=== PATIENT | male | born 1965 | race Caucasian/White ===

== ENCOUNTER 2017-12-12 13:31 | Emergency (ER) | payer BC, OTHER ==
[2017-12-12] MEDS ORDERED: FAMOTIDINE 20 MG/2 ML VIAL IV ONE (14:22)
[2017-12-12 14:30] LABS: Absolute Lymphocytes (CBC) 1.2 K/uL (0.7-4.9); Absolute Monocytes 0.7 K/uL (0.1-1.3); Absolute Neutrophil 4.6 K/uL (1.8-8.0); Basophils % 0.5 % (0-1.3); Eosinophils % 2.3 % (0-4.4); Hematocrit 52.9 % (39.6-49.0); Lymphocytes % 18.1 % (15.3-44.8); MCH 32.2 pg (27.0-35.0); MCV 94.8 fL (80-100); MPV 7.7 fL (7.6-11.3); Monocytes % 10.4 % (3.3-12.3); RBC Red Blood Cell Count 5.59 M/uL (4.33-5.43)
[2017-12-12 14:43] LABS: Potassium 3.7 mEq/L (3.6-5.0)
[2017-12-12 14:49] LABS: Albumin 4.3 g/dL (3.2-5.5); Bilirubin Direct 0.2 mg/dL (0-0.2); Bilirubin Total 0.8 mg/dL (0.3-1.2); Protein, Total 7.8 g/dL (6.0-8.3)
[2017-12-12 16:01] LABS: Urine Blood NEGATIVE (NEG); Urine Glucose NEGATIVE (NEG); Urine Protein NEGATIVE (NEG); Urine pH 5.5 (5.0-7.0)
--- NOTE | 2017-12-12 16:15 | RAD REPORT ---
EXAM DESCRIPTION: CT - Abdomen Pelvis W Contrast - 12/12/2017 3:58 pm CLINICAL HISTORY: Abdominal pain, diarrhea COMPARISON: None. TECHNIQUE: Biphasic, helical CT imaging of the abdomen and pelvis was performed following 100 ml non -ionic IV contrast. Oral contrast was given. All CT scans are performed using dose optimization technique as appropriate and may include automated exposure control or mA/KV adjustment according to patient size. FINDINGS: A 4 millimeter noncalcified nodule is present in the lower right lung field. At this size, no specific recommendation for follow-up in a low risk patient. High risk patient can be re-evaluate d in 12 months. Mild diffuse fatty infiltration of the liver noted. No focal liver or spleen finding. No pancreatic o r peripancreatic abnormality. Gallbladder and biliary tree show no suspicious findings. Symmetric renal function is seen with no hydronephrosis or suspicious renal mass. No pyelonephritis o r acute process. Contracted urinary bladder shows no suspicious finding. Prostate gland and semina l vesicles show no suspicious findings. No gastric dilatation or gastric wall thickening. No dilated small bowel. Colon shows no acute findin g. No appendicitis. No acute GI process seen to explain blood in the stool. No free air, free fluid or inflammatory stranding. No hernia, mass or bulky lymphadenopathy. No adrenal abnormality. No suspicious bony findings. IMPRESSION: Contrast CT abdomen and pelvis imaging shows no acute finding. No abnormality to explain GI bleed. Mild diffuse fatty infiltration of the liver.
--- NOTE | 2017-12-12 16:42 | EDPHYS ---
Physician Documentation [facility] Name: Philippe Farooq Age: 52 yrs Sex: Male : 1965 Arrival Date: 12/12/2017 Time: 13:36 Bed 26 Private MD: ED Physician Anderson Sofia HPI: 12/12 16:29 This 52 yrs old Male presents to ER via Ambulatory with complaints of pm1 Diarrhea. 16:29 The patient presents to the emergency department with diarrhea, abdominal pain, of the pm1 left lower quadrant, described as crampy, and does not radiate. Onset: The symptoms/episode began/occurred 3 day(s) ago. Possible causes: unknown. The symptoms are aggravated by nothing. The symptoms are alleviated by nothing. Associated signs and symptoms: Pertinent positives: diarrhea, Pertinent negatives: fever, nausea, vomiting. Severity of symptoms: in the emergency department the symptoms are unchanged. The patient has not recently seen a physician. Patient with onset of abdominal cramping on Saturday, then onset of diarrhea. Patient took some Pepto Bismol on Saturday and is reporting black diarrhea. Historical: - Allergies: 13:41 PENICILLINS; iw - Home Meds: 13:41 None [Active]; iw - PMHx: 13:41 None; iw - PSHx: 13:41 back; iw - Immunization history:: Adult Immunizations up to date. - Social history:: Smoking status: Patient uses tobacco products, chewing tobacco. ROS: 16:29 Constitutional: Negative for fever, chills, and weight loss, Eyes: Negative for injury, pm1 pain, redness, and discharge, ENT: Negative for injury, pain, and discharge, Neck: Negative for injury, pain, and swelling, Cardiovascular: Negative for chest pain, palpitations, and edema, Respiratory: Negative for shortness of breath, cough, wheezing, and pleuritic chest pain. 16:29 Back: Negative for injury and pain, : Negative for injury, bleeding, discharge, and swelling, MS/Extremity: Negative for injury and deformity, Skin: Negative for injury, rash, and discoloration, Neuro: Negative for headache, weakness, numbness, tingling, and seizure. 16:29 Abdomen/GI: Positive for abdominal pain, of the left lower quadrant, Black stool, Negative for vomiting. Exam: 15:00 Constitutional: This is a well developed, well nourished patient who is awake, alert, pm1 and in no acute distress. Head/Face: Normocephalic, atraumatic. Eyes: Pupils equal round and reactive to light, extra-ocular motions intact. Lids and lashes normal. Conjunctiva and sclera are non-icteric and not injected. Cornea within normal limits. Periorbital areas with no swelling, redness, or edema. ENT: Nares patent. No nasal discharge, no septal abnormalities noted. Tympanic membranes are normal and external auditory canals are clear. Oropharynx with no redness, swelling, or masses, exudates, or evidence of obstruction, uvula midline. Mucous membranes moist. Neck: Trachea midline, no thyromegaly or masses palpated, and no cervical lymphadenopathy. Supple, full range of motion without nuchal rigidity, or vertebral point tenderness. No Meningismus. Chest/axilla: Normal chest wall appearance and motion. Nontender with no deformity. No lesions are appreciated. Cardiovascular: Regular rate and rhythm with a normal S1 and S2. No gallops, murmurs, or rubs. Normal PMI, no JVD. No pulse deficits. Respiratory: Lungs have equal breath sounds bilaterally, clear to auscultation and percussion. No rales, rhonchi or wheezes noted. No increased work of breathing, no retractions or nasal flaring. 15:00 Back: No spinal tenderness. No costovertebral tenderness. Full range of motion. Skin: Warm, dry with normal turgor. Normal color with no rashes, no lesions, and no evidence of cellulitis. MS/ Extremity: Pulses equal, no cyanosis. Neurovascular intact. Full, normal range of motion. 15:00 Abdomen/GI: Inspection: abdomen appears normal, Bowel sounds: normal, Palpation: soft, nontender, mass, is not appreciated, rebound tenderness, is not appreciated. 15:00 Neuro: Orientation: is normal, Motor: is normal, moves all fours, Gait: is steady, at a normal pace, without difficulty. 15:11 Abdomen/GI: Rectal exam: rectal tone normal, Stool: guaiac negative, mass, is not pm1 appreciated, tenderness, is not appreciated, Nadine SERRANO. Vital Signs: 13:41 BP 133 / 99; Pulse 88; Resp 16; Temp 97.9; Pulse Ox 99% on R/A; Weight 99.79 kg; Height iw 5 ft. 11 in. (180.34 cm); 13:59 BP 145 / 110; Pulse 80; Resp 16; Pulse Ox 98% ; tl3 15:04 BP 126 / 83; Pulse 82; Resp 18; Pulse Ox 98% on R/A; tl3 17:28 BP 113 / 75; Pulse 65; Resp 18; Pulse Ox 100% on R/A; tl3 17:52 Pulse 71; Resp 16; Pulse Ox 98% ; tl3 13:41 Body Mass Index 30.68 (99.79 kg, 180.34 cm) iw MDM: 13:43 Patient medically screened. pm1 16:28 Data reviewed: vital signs. Data interpreted: Pulse oximetry: on room air is 98 %. pm1 Interpretation: normal. Counseling: I had a detailed discussion with the patient and/or guardian regarding: the historical points, exam findings, and any diagnostic results supporting the discharge/admit diagnosis, lab results, radiology results, the need for outpatient follow up, to return to the emergency department if symptoms worsen or persist or if there are any questions or concerns that arise at home. 12/12 14:02 Order name: Basic Metabolic Panel; Complete Time: 14:59 pm1 12/12 14:02 Order name: CBC with Diff; Complete Time: 14:59 pm1 12/12 14:02 Order name: Hepatic Function; Complete Time: 14:59 pm1 12/12 14:02 Order name: Lipase; Complete Time: 14:59 pm1 12/12 14:02 Order name: Type And Screen; Complete Time: 15:53 pm1 12/12 14:15 Order name: Urine Dipstick--Ancillary (enter results); Complete Time: 16:20 bd 12/12 14:02 Order name: IV Saline Lock; Complete Time: 14:21 pm12/12 14:02 Order name: Labs collected and sent; Complete Time: 14:21 pm12/12 14:02 Order name: Urine Dipstick-Ancillary (obtain specimen); Complete Time: 14:21 pm1 12/12 14:02 Order name: CT Abd/Pelvis - W/Contrast; Complete Time: 16:20 pm1 12/12 15:10 Order name: Occult Blood--Ancillary bd 12/12 16:09 Order name: ABO/RH no charge; Complete Time: 16:20 EDMS Administered Medications: 16:57 Drug: NS 0.9% 1000 ml Route: IV; Rate: 1000 ml; Site: right antecubital; Delivery: tl3 Primary tubing; 18:21 Follow up: IV Status: Completed infusion; IV Intake: 1000ml tl3 17:20 Drug: TORadol 30 mg Route: IVP; Site: right antecubital; tl3 17:52 Follow up: Response: No adverse reaction; Pain is decreased tl3 Point of Care Testing: Guaiac: 15:04 Stool Guaiac: Negative; Stool Hemoccult Control: Pass; tl3 Disposition: 18:39 Co-signature as Attending Physician, Anderson Sofia MD. rn Disposition: 12/12/17 16:42 Discharged to Home. Impression: Diarrhea, unspecified. - Condition is Stable. - Discharge Instructions: Food Choices to Help Relieve Diarrhea, Adult, Diarrhea, Viral Gastroenteritis. - Prescriptions for Zofran 4 mg Oral Tablet - take 1 tablet by ORAL route every 8 hours As needed; 20 tablet. - Medication Reconciliation Form, Thank You Letter, Antibiotic Education form. - Follow up: Emergency Department; When: As needed; Reason: Worsening of condition. Follow up: Private Physician; When: 2 - 3 days; Reason: Recheck today's complaints, Continuance of care, Re-evaluation by your physician. - Problem is new. - Symptoms have improved. Signatures: Dispatcher [employer] EDMS Kell Nettles RN RN iw Nieto, Roman, MD MD rn Marinas, Patrick, CHAINSTITCH ELASTIC ATTACHER CHAINSTITCH ELASTIC ATTACHER pm1 Nadine Robb RN RN tl3 Corrections: (The following items were deleted from the chart) 18:22 16:42 12/12/2017 16:42 Discharged to Home. Impression: Diarrhea, unspecified. Condition tl3 is Stable. Forms are Medication Reconciliation Form, Thank You Letter, Antibiotic Education, Prescription Opioid Use. Follow up: Emergency Department; When: As needed; Reason: Worsening of condition. Follow up: Private Physician; When: 2 - 3 days; Reason: Recheck today's complaints, Continuance of care, Re-evaluation by your physician. Problem is new. Symptoms have improved. pm1
--- NOTE | 2017-12-12 16:42 | ER ---
Nurse's Notes [facility] Name: Philippe Farooq Age: 52 yrs Sex: Male : 1965 Arrival Date: 12/12/2017 Time: 13:36 Bed 26 Private MD: Diagnosis: Diarrhea, unspecified Presentation: 12/12 13:39 Presenting complaint: Patient states: Black diarrhea for 2 days. Patient reports taking iw pepto when stomach upset began. Transition of care: patient was not received from another setting of care. Onset of symptoms was December 10, 2017. Care prior to arrival: None. 13:39 Method Of Arrival: Ambulatory iw 13:39 Acuity: LAURA 3 iw 18:22 Initial Sepsis Screen: Does the patient meet any 2 criteria? No. Patient's initial tl3 sepsis screen is negative. Does the patient have a suspected source of infection? No. Patient's initial sepsis screen is negative. Triage Assessment: 13:41 General: Appears in no apparent distress. comfortable, Behavior is calm, cooperative, iw appropriate for age. Pain: Complains of pain in right lower quadrant and left lower quadrant. Neuro: Level of Consciousness is awake, alert, obeys commands, Oriented to person, place, time, situation, Appropriate for age. Respiratory: Airway is patent Respiratory effort is even, unlabored, Respiratory pattern is regular, symmetrical. GI: Reports lower abdominal pain, upper abdominal pain, diarrhea, nausea. Derm: Skin is intact, is healthy with good turgor, Skin is pink, warm \T\ dry. normal. Historical: - Allergies: 13:41 PENICILLINS; iw - Home Meds: 13:41 None [Active]; iw - PMHx: 13:41 None; iw - PSHx: 13:41 back; iw - Immunization history:: Adult Immunizations up to date. - Social history:: Smoking status: Patient uses tobacco products, chewing tobacco. Screenin:59 Abuse screen: Denies threats or abuse. Nutritional screening: No deficits noted. tl3 Tuberculosis screening: No symptoms or risk factors identified. Fall Risk None identified. Assessment: 13:59 General: Appears uncomfortable, well groomed, well developed, well nourished, Behavior tl3 is calm, cooperative, appropriate for age. Pain: Complains of pain in abdomen and left lower quadrant and right lower quadrant. Neuro: Level of Consciousness is awake, alert, obeys commands, Oriented to person, place, time, situation, Appropriate for age. Cardiovascular: Heart tones S1 S2 present Capillary refill < 3 seconds in bilateral fingers. Respiratory: Airway is patent Trachea midline Respiratory effort is even, unlabored, Respiratory pattern is regular, symmetrical, Breath sounds are clear bilaterally. GI: Abdomen is round Bowel sounds present X 4 quads. Reports bloody stool. GI: Reports since Saturday. : No signs and/or symptoms were reported regarding the genitourinary system. EENT: No signs and/or symptoms were reported regarding the EENT system. Derm: No signs and/or symptoms reported regarding the dermatologic system. Musculoskeletal: No signs and/or symptoms reported regarding the musculoskeletal system. 15:04 Reassessment: Patient appears in no apparent distress at this time. No changes from tl3 previously documented assessment. Patient and/or family updated on plan of care and expected duration. Pain level reassessed. Patient is alert, oriented x 3, equal unlabored respirations, skin warm/dry/pink. 15:27 Reassessment: Patient appears in no apparent distress at this time. No changes from tl3 previously documented assessment. Patient and/or family updated on plan of care and expected duration. Pain level reassessed. Patient is alert, oriented x 3, equal unlabored respirations, skin warm/dry/pink. pt unable to provide stool sample. 17:28 Reassessment: awaiting fluids to finish infusing before discharging. tl3 17:52 Reassessment: Patient appears in no apparent distress at this time. No changes from tl3 previously documented assessment. Patient and/or family updated on plan of care and expected duration. Pain level reassessed. Patient is alert, oriented x 3, equal unlabored respirations, skin warm/dry/pink. pt resting, about 300ml left to go on bolus. Vital Signs: 13:41 BP 133 / 99; Pulse 88; Resp 16; Temp 97.9; Pulse Ox 99% on R/A; Weight 99.79 kg; Height iw 5 ft. 11 in. (180.34 cm); 13:59 BP 145 / 110; Pulse 80; Resp 16; Pulse Ox 98% ; tl3 15:04 BP 126 / 83; Pulse 82; Resp 18; Pulse Ox 98% on R/A; tl3 17:28 BP 113 / 75; Pulse 65; Resp 18; Pulse Ox 100% on R/A; tl3 17:52 Pulse 71; Resp 16; Pulse Ox 98% ; tl3 13:41 Body Mass Index 30.68 (99.79 kg, 180.34 cm) iw ED Course: 13:36 Patient arrived in ED. rg4 13:41 Triage completed. iw 13:41 Arm band placed on left wrist. Patient placed in an exam room, on a stretcher. iw 13:42 Jude Bailey NP is PHCP. pm1 13:42 Anderson Sofia MD is Attending Physician. pm1 13:45 Nadine Robb, ZACH is Primary Nurse. tl3 13:59 No apparent distress. Resting quietly. Awaiting lab results. tl3 13:59 Patient has correct armband on for positive identification. Bed in low position. Call tl3 light in reach. Side rails up X 1. Pulse ox on. NIBP on. Door closed. 13:59 No provider procedures requiring assistance completed. Inserted saline lock: 20 gauge tl3 in right antecubital area, using aseptic technique. Blood collected. 15:[address] via wheelchair. vm2 15:58 CT Abd/Pelvis - W/Contrast In Process Unspecified. EDMS 15:58 CT completed. Patient tolerated procedure well. Patient moved back from CT. kw1 18:20 IV discontinued, intact, bleeding controlled, No redness/swelling at site. Pressure tl3 dressing applied. Administered Medications: 16:57 Drug: NS 0.9% 1000 ml Route: IV; Rate: 1000 ml; Site: right antecubital; Delivery: tl3 Primary tubing; 18:21 Follow up: IV Status: Completed infusion; IV Intake: 1000ml tl3 17:20 Drug: TORadol 30 mg Route: IVP; Site: right antecubital; tl3 17:52 Follow up: Response: No adverse reaction; Pain is decreased tl3 Point of Care Testing: Guaiac: 15:04 Stool Guaiac: Negative; Stool Hemoccult Control: Pass; tl3 Intake: 18:21 IV: 1000ml; Total: 1000ml. tl3 Outcome: 16:42 Discharge ordered by . pm1 18:20 Discharged to home ambulatory. tl3 18:20 Condition: stable 18:20 Discharge instructions given to patient, Instructed on discharge instructions, follow up and referral plans. medication usage, Demonstrated understanding of instructions, follow-up care, medications, Prescriptions given X 1, stressed good handwashing and fluid intake 18:22 Patient left the ED. tl3 Signatures: Dispatcher [employer] EDKell Calhoun, RN RN Jude Jackson, [employer] SYSTEMS TECHNICIAN pm1 Peg Lopez rg4 Jeaneth Rolle 2 Laura Sparrow 1 Nadnie Robb RN RN tl3 Corrections: (The following items were deleted from the chart) 15:32 15:27 BP 120 / 75; Pulse 78bpm; Resp 16bpm; Pulse Ox 100% RA; tl3 tl3
[2017-12-12] MEDS ORDERED: NA CHLORIDE 0.9% 1,000 ML ONE (16:59)
[2017-12-12] MEDS ORDERED: KETOROLAC 30 MG/ML INJ ONE (17:17)
== END 2017-12-12 18:22 | disposition home or self-care (01) ==
LOC: ER 13:31
DX: R19.7 Diarrhea, unspecified (principal); Z72.0 Tobacco use; Z88.0 Allergy status to penicillin
CPT/HCPCS: 36415; 74177; 80048; 80076; 81003; 82272; 83690; 85025; 86850; 86900; 86901; 96361; 96374; 99284; J7030; Q9967

== ENCOUNTER 2022-01-31 15:56 | Emergency (ER) | payer OTHER ==
[2022-01-31 16:28] LABS: Absolute Lymphocytes (CBC) 0.9 K/uL (0.7-4.9); Hematocrit 47.5 % (39.6-49.0); Lymphocytes % 9.8 % (15.3-44.8); MCV 94.4 fL (80-100); MPV 7.3 fL (7.6-11.3); RBC Red Blood Cell Count 5.03 M/uL (4.33-5.43)
--- NOTE | 2022-01-31 16:36 | RAD REPORT ---
EXAM DESCRIPTION: CT - Ct Stroke Brain Wo Cont - 01/31/2022 4:28 pm CLINICAL HISTORY: Headache Headache, drowsiness, CVA symptomology COMPARISON: No comparisons TECHNIQUE: All CT scans are performed using dose optimization technique as appropriate and may inclu de automated exposure control or mA/KV adjustment according to patient size. FINDINGS: No intracranial hemorrhage, hydrocephalus or extra-axial fluid collection.No areas of brai n edema or evidence of midline shift. The paranasal sinuses and mastoids are clear. The calvarium is intact. IMPRESSION: No acute intracranial abnormality. The findings were discussed with Santos France in the ER on 01/31/2022 at 4:07 p.m. by telephone.
--- NOTE | 2022-01-31 16:40 | RAD REPORT ---
EXAM DESCRIPTION: RAD - Chest Single View - 01/31/2022 4:27 pm CLINICAL HISTORY: MALAISE Chest pain. COMPARISON: Ct Stroke Brain Wo Cont dated 01/31/2022 FINDINGS: Portable technique limits examination quality. Mild interstitial pulmonary edema. The heart is mildly prominent. No displaced fractures. IMPRESSION: Mild CHF.
[2022-01-31 16:42] LABS: Potassium 4.2 mmol/L (3.5-5.1); Protime INR 1.03
[2022-01-31] MEDS ORDERED: MORPHINE 4 MG/ML SYR ONE (16:53)
[2022-01-31] MEDS ORDERED: NA CHLORIDE 0.9% 1,000 ML ONE (16:53)
[2022-01-31] MEDS ORDERED: ONDANSETRON 4 MG/2 ML VIAL ONE (16:53)
[2022-01-31] MEDS ORDERED: MEPERIDINE HCL 25 MG/ML SYR ONE (16:58)
[2022-01-31] MEDS ORDERED: HYDROMORPHONE HCL 1 MG/ML INJ ONE (18:31)
[2022-01-31 20:17] LABS: CSF Glucose 52 mg/dL (40-70)
[2022-01-31 21:06] LABS: Appearance CLEAR (CLEAR); Body Fluid Source CSF; Body Fluid WBC 1 /mm^3; Color of fluid Colorless (COLORLESS)
[2022-01-31 21:07] LABS: Appearance CLEAR (CLEAR); Body Fluid Source CSF; Body Fluid WBC 0 /mm^3; Color of fluid Colorless (COLORLESS); Fluid Total Volume 12.5 ml
[2022-01-31] MEDS ORDERED: METOCLOPRAMIDE 10 MG/2mL INJ ONE (21:27)
[2022-01-31] MEDS ORDERED: NA CHLORIDE 0.9% 500 ML ONE (21:28)
[2022-01-31] MEDS ORDERED: dexAMETHasone 10 MG/ML VIAL ONE (21:28)
[2022-01-31] MEDS ORDERED: KETOROLAC 30 MG/ML INJ ONE (21:28)
--- NOTE | 2022-01-31 22:14 | ER ---
Nurse's Notes [facility] Name: Philippe Farooq Age: 56 yrs Sex: Male : 1965 Arrival Date: 01/31/2022 Time: 15:58 Bed 4 Private MD: Diagnosis: Headache Presentation: 01/31 15:58 Chief complaint: EMS states: Sudden onset of headache, worse ever. Onset at 1200 today. ss Coronavirus screen: Client denies travel out of the [place] in the last 14 days. Ebola Screen: Patient denies exposure to infectious person. Patient denies travel to an Ebola-affected area in the 21 days before illness onset. Initial Sepsis Screen: Does the patient meet any 2 criteria? No. Patient's initial sepsis screen is negative. Does the patient have a suspected source of infection? No. Patient's initial sepsis screen is negative. Risk Assessment: Do you want to hurt yourself or someone else? Patient reports no desire to harm self or others. Onset of symptoms was January 31, 2022 at 12:00. 15:58 Method Of Arrival: EMS: [facility] ss 15:58 Acuity: LAURA 2 ss 16:00 No acute neurological deficit is noted. The patients blood glucose was checked before jd3 arriving to the hospital and was found to be hypoglycemic. The patient's blood glucose has been rechecked and it is now normal. The charge nurse has been notified. The patient has been moved to a treatment area. Triage Assessment: 16:00 The onset of the patients symptoms was January 31, 2022 at 12:00. jd3 16:00 Neuro: Polanco Agitation-Sedation Scale (RASS): 0 - Alert and Calm Level of jd3 Consciousness is awake, alert, obeys commands, Oriented to person, place, time, situation, Cancer Registry Coordinator are equal bilaterally Moves all extremities. Full function Speech is normal, Facial symmetry appears normal, Pupils are PERRLA, Tingling in left hand and left arm Reports headache " in the jehovah's witness areas and it wraps around to the back of my head tingling feeling to his left hand and arm. Stroke Activation: Symtpom onset >3 hours and < 6 hours Physician: Stroke Attending; Name: Dr. Carlos; Notified At: 16:00; Arrived At: 16:00 Physician: Chief Stroke Resident; Name: ; Notified At: 16:00; Arrived At: Physician: Stroke Resident; Name: ; Notified At: 16:00; Arrived At: Physician: ED Attending; Name: Dr. Carlos; Notified At: 16:00; Arrived At: 16:00 Physician: ED Resident; Name: ; Notified At: 16:00; Arrived At: Historical: - Allergies: 16:04 PENICILLINS; ss 19:14 Morphine; jd3 - Home Meds: 16:04 Lisinopril Oral [Active]; meloxicam oral [Active]; ss - PMHx: 16:04 Hypertensive disorder; ss - Immunization history:: Adult Immunizations up to date, Client reports receiving the 2nd dose of the Covid vaccine. - Social history:: Smoking status: Patient/guardian denies using tobacco, but has a distant history of tobacco abuse. Screenin:29 Abuse screen: Denies threats or abuse. Nutritional screening: No deficits noted. jd3 Tuberculosis screening: No symptoms or risk factors identified. Fall Risk IV access (20 points). Ambulatory Aid- None/Bed Rest/Nurse Assist (0 pts). Gait- Normal/Bed Rest/Wheelchair (0 pts) Mental Status- Oriented to own ability (0 pts). Total Goyal Fall Scale indicates No Risk (0-24 pts). Assessment: 16:00 Reassessment: pt to CT for code stroke. jd3 16:00 VAN Scoring: Arm Drift: Patients demonstrates NO arm weakness. Patient is VAN Negative. jd3 16:00 General: Appears uncomfortable, Behavior is calm, cooperative, appropriate for age. jd3 Pain: Complains of pain in right jehovah's witness and left jehovah's witness Pain radiates to head Quality of pain is described as sharp, shooting, Pain began suddenly. Neuro: [place] Agitation-Sedation Scale (RASS): 0 - Alert and Calm Level of Consciousness is awake, alert, obeys commands, Oriented to person, place, time, situation. 16:25 Patient has been NPO before screening. The patient is alert, and able to follow jd3 commands. The patient does not exhibit slurred or garbled speech. The patient is not exhibiting difficulty speaking. The patient does not exhibit difficulty understanding words. The patient is able to swallow own secretions with no drooling or need for suction. Patient tolerated one teaspoon of water. No drooling, immediate coughing, gurgling, or clearing of the throat was noted. The patient tolerated 90mL of water. No drooling, immediate coughing, gurgling, or clearing of the throat was noted. The patient passed the bedside swallow screening. Oral medications may be given as ordered. Contact Physician for further diet orders. Provider notified of bedside swallow screening results: Adonay Carlos MD. Cardiovascular: Capillary refill < 3 seconds Patient's skin is warm and dry. Rhythm is regular. Respiratory: Airway is patent Respiratory effort is even, unlabored, Respiratory pattern is regular, symmetrical. GI: No signs and/or symptoms were reported involving the gastrointestinal system. : No signs and/or symptoms were reported regarding the genitourinary system. EENT: No signs and/or symptoms were reported regarding the EENT system. Derm: Skin is intact, Skin is dry, Skin is normal, Skin temperature is warm. Musculoskeletal: Circulation, motion, and sensation intact. Range of motion: intact in all extremities. 16:30 T-PA (Activase) Screening: Contraindications: Patient reports onset of signs and jd3 symptoms of stroke greater than 6 hours ago: No. 18:11 Reassessment: No changes from previously documented assessment. Patient and/or family jd3 updated on plan of care and expected duration. Pain level reassessed. Patient is alert, oriented x 3, equal unlabored respirations, skin warm/dry/pink. 18:18 Reassessment: LP consent signed by patient . aa5 21:32 General: Reports "My head is still killing me. I feel like my head is getting sore from tw5 the headache/". 22:40 Reassessment: Patient states feeling better. Patient states symptoms have improved. tw5 General: Reports. Pain: Pain currently is 5 out of 10 on a pain scale. Vital Signs: 16:18 BP 137 / 87; Pulse 81; Resp 17 S; Pulse Ox 99% on R/A; Weight 88.45 kg (R); Height 6 jd3 ft. 0 in. (182.88 cm) (R); Pain 8/10; 18:11 BP 153 / 91; Pulse 80; Resp 17 S; Pulse Ox 99% on R/A; jd3 21:32 BP 126 / 82; Pulse 89; Resp 18; Pulse Ox 98% on R/A; Pain 8/10; tw5 22:40 BP 123 / 91; Pulse 81; Resp 18; Pulse Ox 96% on R/A; tw5 16:18 Body Mass Index 26.45 (88.45 kg, 182.88 cm) jd3 [place] Coma Score: 22:12 Eye Response: spontaneous(4). Verbal Response: oriented(5). Motor Response: obeys rn commands(6). Total: 15. NIH Stroke Scale Scores: 16:00 NIHSS Score: 0 jd3 17:30 NIHSS Score: 0 jd3 ED Course: 15:58 Patient arrived in ED. ss 16:01 Adonay Carlos MD is Attending Physician. kdr 16:04 Triage completed. ss 16:17 Faisal Vázquez, ZACH is Primary Nurse. jd3 16:19 Arm band placed on. jd3 16:24 Inserted saline lock: 20 gauge in right antecubital area, using aseptic technique. zm Blood collected. 16:25 Basic Metabolic Panel Sent. zm 16:25 CBC with Diff Sent. zm 16:25 Protime (+inr) Sent. zm 16:25 Ptt, Activated Sent. zm 16:26 EKG completed in triage. Results shown to MD. jd3 16:29 CT Stroke Brain w/o Contrast In Process Unspecified. EDMS 16:29 Stroke CXR 1 View In Process Unspecified. EDMS 16:29 Patient has correct armband on for positive identification. Bed in low position. Call [facility] light in reach. Side rails up X 1. Client placed on continuous cardiac and pulse oximetry monitoring. NIBP monitoring applied. monitor technician on. Pulse ox on. NIBP on. 18:55 Assist provider with lumbar puncture: Set up LP tray. Performed by Adonay Carlos MD CSF aa5 is clear. Puncture site dressed with band aid, Procedure was successful. Patient tolerated Pt instructed to remain in supine position x 1 hr post procedure. 19:00 Report given to Twyla SERRANO. jd3 20:55 Attending Physician role handed off by Adonay Carlos MD rn 20:55 Anderson Sofia MD is Attending Physician. rn 21:18 Csf Culture Sent. tw5 21:32 Door closed. tw5 22:13 Nixon Boggs MD is Referral Physician. rn 22:40 IV discontinued, intact, bleeding controlled, No redness/swelling at site. Pressure tw5 dressing applied. Administered Medications: 16:57 Not Given (Physician Discretion): morphine 4 mg IVP once over 4 mins jd3 16:57 Drug: Zofran (Ondansetron) 4 mg Route: IVP; Site: right antecubital; jd3 17:50 Follow up: Response: No adverse reaction jd3 16:57 Drug: NS 0.9% 500 ml Route: IV; Rate: bolus; Site: right antecubital; jd3 18:13 Follow up: Response: No adverse reaction; IV Status: Completed infusion jd3 16:57 Drug: Demerol (meperidine) 25 mg Route: IVP; Site: right antecubital; jd3 17:50 Follow up: Response: No adverse reaction; RASS: Alert and Calm (0) jd3 18:25 Drug: Dilaudid (HYDROmorphone) 1 mg Route: IVP; Site: right antecubital; jd3 19:13 Follow up: Response: No adverse reaction; RASS: Alert and Calm (0) jd3 21:26 Drug: NS 0.9% 500 ml Route: IV; Rate: bolus; Site: right antecubital; tw5 22:45 Follow up: Response: No adverse reaction; IV Status: Completed infusion; IV Intake: tw5 500ml 21:31 Drug: Reglan (metoCLOPramide) 10 mg Route: IVP; Site: right antecubital; tw5 22:46 Follow up: Response: No adverse reaction tw5 21:31 Drug: Decadron - Dexamethasone 10 mg Route: IVP; Site: right antecubital; tw5 22:45 Follow up: Response: No adverse reaction tw5 21:31 Drug: Ketorolac 15 mg Route: IVP; Site: right antecubital; tw5 22:45 Follow up: Response: No adverse reaction tw5 Medication: 16:29 VIS not applicable for this client. jd3 Point of Care Testing: Blood Glucose: 16:20 Blood Glucose: 96 mg/dL; jd3 Ranges: Intake: 22:45 IV: 500ml; Total: 500ml. tw5 Outcome: 22:13 Discharge ordered by MD. serrano 22:40 Discharged to home ambulatory. tw5 22:40 Condition: improved 22:40 Discharge instructions given to patient, Instructed on discharge instructions, Demonstrated understanding of instructions, follow-up care. 22:46 Patient left the ED. tw5 NIH Stroke Scale - NIH Stroke Score Date: 01/31/2022 Time: 16:00 Total Score = 0 1a. Level of Consciousness (LOC) - 0(Alert) 1b. Level of Consciousness (LOC) (Month \\T\\ Age) - 0(Both) 1c. LOC Commands (Open \\T\\ Closes Eyes/Microbiology Laboratory Manager) - 0(Both) 2. Best Gaze (Lateral Gaze Paresis) - 0(Normal) 3. Visual Field Loss - 0(No visual loss) 4. Facial Palsy - 0(Normal) 5a. Left Arm: Motor (10-second hold) - 0(No drift) 5b. Right Arm: Motor (10-second hold) - 0(No drift) 6a. Left Leg: Motor (5-second hold - always test supine) - 0(No drift) 6b. Right Leg: Motor (5-second hold - always test supine) - 0(No drift) 7. Limb Ataxia (finger/nose \\T\\ heel/weber - test with eyes open) - 0(Absent) 8. Sensory Loss (pinprick arms/legs/face) - 0(Normal) 9. Best Language: Aphasia (description/naming/reading) - 0(No aphasia) 10. Dysarthria (speech clarity - read or repeat words) - 0(Normal) 11. Extinction and Inattention (visual/tactile/auditory/spatial/personal) - 0(No abnormality) Initials: jd3 NIH Stroke Scale - NIH Stroke Score Date: 01/31/2022 Time: 17:30 Total Score = 0 1a. Level of Consciousness (LOC) - 0(Alert) 1b. Level of Consciousness (LOC) (Month \\T\\ Age) - 0(Both) 1c. LOC Commands (Open \\T\\ Closes Eyes/Microbiology Laboratory Manager) - 0(Both) 2. Best Gaze (Lateral Gaze Paresis) - 0(Normal) 3. Visual Field Loss - 0(No visual loss) 4. Facial Palsy - 0(Normal) 5a. Left Arm: Motor (10-second hold) - 0(No drift) 5b. Right Arm: Motor (10-second hold) - 0(No drift) 6a. Left Leg: Motor (5-second hold - always test supine) - 0(No drift) 6b. Right Leg: Motor (5-second hold - always test supine) - 0(No drift) 7. Limb Ataxia (finger/nose \\T\\ heel/weber - test with eyes open) - 0(Absent) 8. Sensory Loss (pinprick arms/legs/face) - 0(Normal) 9. Best Language: Aphasia (description/naming/reading) - 0(No aphasia) 10. Dysarthria (speech clarity - read or repeat words) - 0(Normal) 11. Extinction and Inattention (visual/tactile/auditory/spatial/personal) - 0(No abnormality) Initials: jchelsea Signatures: Dispatcher [employer] Adonay Calabrese MD MD kdr Nieto, Roman, MD MD rn Calderon, Toña, ZACH RN aa5 Rebekah Quiros RN RN ss Davies, Jonathon, RN RN jd3 Wood, Tiffany 5 Kiana Cifuentes Corrections: (The following items were deleted from the chart) 16:26 16:23 The onset of the patients symptoms was January 31, 2022 at 12:00 milena abbott
--- NOTE | 2022-01-31 22:14 | EDPHYS ---
Physician Documentation [facility] Name: Philippe Farooq Age: 56 yrs Sex: Male : 1965 Arrival Date: 01/31/2022 Time: 15:58 Bed 4 Private MD: ED Physician Anderson Sofia HPI: 01/31 19:01 This 56 yrs old Male presents to ER via EMS with complaints of Headache, Worst Ever. kdr 19:01 The patient complains of pain to the top of head and forehead. The patient describes kdr the headache as aching, constant, a pressure. Onset: The symptoms/episode began/occurred acutely, suddenly, just prior to arrival. Associated signs and symptoms: Pertinent positives: nausea, Pertinent negatives: fever, neck stiffness, paresthesias, sinus congestion, sinus tenderness, vision changes, weakness, vertigo. Severity of symptoms: At its worst the pain was incapacitating, just prior to arrival, the "worst in my life". Headache History: The patient has had previous headaches and this one is more severe than previous episodes. The symptoms are alleviated by nothing. the symptoms are aggravated by lights, movement. The patient has not experienced similar symptoms in the past. The patient has not recently seen a physician. Historical: - Allergies: 16:04 PENICILLINS; ss 19:14 Morphine; jd3 - Home Meds: 16:04 Lisinopril Oral [Active]; meloxicam oral [Active]; ss - PMHx: 16:04 Hypertensive disorder; ss - Immunization history:: Adult Immunizations up to date, Client reports receiving the 2nd dose of the Covid vaccine. - Social history:: Smoking status: Patient/guardian denies using tobacco, but has a distant history of tobacco abuse. ROS: 19:01 Constitutional: Negative for fever, chills, and weight loss, Eyes: Negative for injury, kdr pain, redness, and discharge, Neck: Negative for injury, pain, and swelling, Cardiovascular: Negative for chest pain, palpitations, and edema, Respiratory: Negative for shortness of breath, cough, wheezing, and pleuritic chest pain, Abdomen/GI: Negative for abdominal pain, nausea, vomiting, diarrhea, and constipation, Back: Negative for injury and pain, : Negative for injury, bleeding, discharge, and swelling, MS/Extremity: Negative for injury and deformity, Skin: Negative for injury, rash, and discoloration, Psych: Negative for depression, anxiety, suicide ideation, homicidal ideation, and hallucinations, Allergy/Immunology: Negative for hives, rash, and allergies, Endocrine: Negative for neck swelling, polydipsia, polyuria, polyphagia, and marked weight changes, Hematologic/Lymphatic: Negative for swollen nodes, abnormal bleeding, and unusual bruising. 19:01 Neuro: Positive for Tingling minor in upper extremities, Negative for altered mental status, gait disturbance, hearing loss, loss of consciousness, numbness, seizure activity, speech changes, syncope, near syncope, tinnitus, tremor, visual changes. Exam: 19:01 Constitutional: This is a well developed, well nourished patient who is awake, alert, kdr and in no acute distress. Head/Face: Normocephalic, atraumatic. Eyes: Pupils equal round and reactive to light, extra-ocular motions intact. Lids and lashes normal. Conjunctiva and sclera are non-icteric and not injected. Cornea within normal limits. Periorbital areas with no swelling, redness, or edema. Neck: Trachea midline, no thyromegaly or masses palpated, and no cervical lymphadenopathy. Supple, full range of motion without nuchal rigidity, or vertebral point tenderness. No Meningismus. 19:01 Neck: ROM/movement: pain, is not appreciated, Meningeal signs: are not present, nuchal rigidity, is not appreciated, No pain with leg raises either. Vital Signs: 16:18 BP 137 / 87; Pulse 81; Resp 17 S; Pulse Ox 99% on R/A; Weight 88.45 kg (R); Height 6 jd3 ft. 0 in. (182.88 cm) (R); Pain 8/10; 18:11 BP 153 / 91; Pulse 80; Resp 17 S; Pulse Ox 99% on R/A; jd3 21:32 BP 126 / 82; Pulse 89; Resp 18; Pulse Ox 98% on R/A; Pain 8/10; tw5 22:40 BP 123 / 91; Pulse 81; Resp 18; Pulse Ox 96% on R/A; tw5 16:18 Body Mass Index 26.45 (88.45 kg, 182.88 cm) jd3 NIH Stroke Scale Scores: 16:00 NIHSS Score: 0 jd3 17:30 NIHSS Score: 0 jd3 [place] Coma Score: 22:12 Eye Response: spontaneous(4). Verbal Response: oriented(5). Motor Response: obeys rn commands(6). Total: 15. Procedures: 19:01 Lumbar Puncture: Patient placed in sitting position. Prepped with Betadine. Collected kdr 12 ml's of clear fluid. Sample sent to lab. Puncture site dressed with band aid, Patient tolerated well. MDM: 19:01 Data reviewed: vital signs, nurses notes, lab test result(s), radiologic studies. kdr 19:12 ED course: Dr. Sofia to disposition. kdr 19:42 Patient medically screened. cp 20:55 ED course: Signed out to me by Dr. Carlos, pending results of LP for new and worst rn headache of his life.. 22:12 Differential diagnosis: cluster headache, intracerebral hemorrhage, meningitis, rn migraine, neoplasm, sinusitis, subarachnoid bleed, tension headache, vasomotor headache. Counseling: I had a detailed discussion with the patient and/or guardian regarding: the historical points, exam findings, and any diagnostic results supporting the discharge/admit diagnosis, lab results, radiology results, the need for outpatient follow up, to return to the emergency department if symptoms worsen or persist or if there are any questions or concerns that arise at home. Response to treatment: the patient's symptoms have mildly improved after treatment, and as a result, I will discharge patient. Special discussion: I discussed with the patient/guardian in detail that at this point there is no indication for admission to the hospital. It is understood, however, that if the symptoms persist or worsen the patient needs to return immediately for re-evaluation. Based on the history and exam findings, there is no indication for further emergent testing or inpatient evaluation. I discussed with the patient/guardian the need to see the neurologist for further evaluation of the symptoms. I discussed with the patient/guardian the need to see the primary care provider for further evaluation of the symptoms. ED course: LP results neg for RBC or meningitis. Stable vitals, feels better, will dc home with neuro and pcp f/u and return precautions. . 01/31 16:02 Order name: Basic Metabolic Panel; Complete Time: 16:55 kdr 01/31 16:02 Order name: CBC with Diff; Complete Time: 16:55 kdr 01/31 16:02 Order name: Protime (+inr); Complete Time: 16:55 kdr 01/31 16:02 Order name: Ptt, Activated; Complete Time: 16:55 kdr 01/31 16:37 Order name: Glucose, Ancillary Testing; Complete Time: 16:55 EDMS 01/31 16:02 Order name: CT Stroke Brain w/o Contrast; Complete Time: 16:55 kdr 01/31 16:02 Order name: Stroke CXR 1 View; Complete Time: 16:55 kdr 01/31 19:17 Order name: Csf Culture em1 01/31 19:17 Order name: Fluid Cell Count,Body; Complete Time: 21:08 em1 01/31 19:17 Order name: Spinal Fluid Profile; Complete Time: 21:13 em1 01/31 16:02 Order name: EKG; Complete Time: 16:03 kdr 01/31 16:02 Order name: Accucheck; Complete Time: 16:26 kdr 01/31 16:02 Order name: Cardiac monitoring; Complete Time: 16:26 kdr 01/31 16:02 Order name: EKG - Nurse/Tech; Complete Time: 16:26 kdr 01/31 16:02 Order name: IV Saline Lock; Complete Time: 16:25 kdr 01/31 16:02 Order name: Labs collected and sent; Complete Time: 16:25 kdr 01/31 16:02 Order name: NPO; Complete Time: 16:40 kdr 01/31 16:02 Order name: O2 Per Protocol; Complete Time: 16:40 kdr 01/31 16:02 Order name: O2 Sat Monitoring; Complete Time: 16:40 kdr 01/31 16:02 Order name: Stroke Swallow Screen; Complete Time: 16:40 kdr 01/31 19:17 Order name: LP Consents; Complete Time: 19:17 em1 01/31 19:17 Order name: LP Setup; Complete Time: 19:17 em1 Administered Medications: 16:57 Not Given (Physician Discretion): morphine 4 mg IVP once over 4 mins jd3 16:57 Drug: Zofran (Ondansetron) 4 mg Route: IVP; Site: right antecubital; jd3 17:50 Follow up: Response: No adverse reaction jd3 16:57 Drug: NS 0.9% 500 ml Route: IV; Rate: bolus; Site: right antecubital; jd3 18:13 Follow up: Response: No adverse reaction; IV Status: Completed infusion jd3 16:57 Drug: Demerol (meperidine) 25 mg Route: IVP; Site: right antecubital; jd3 17:50 Follow up: Response: No adverse reaction; RASS: Alert and Calm (0) jd3 18:25 Drug: Dilaudid (HYDROmorphone) 1 mg Route: IVP; Site: right antecubital; jd3 19:13 Follow up: Response: No adverse reaction; RASS: Alert and Calm (0) jd3 21:26 Drug: NS 0.9% 500 ml Route: IV; Rate: bolus; Site: right antecubital; tw5 22:45 Follow up: Response: No adverse reaction; IV Status: Completed infusion; IV Intake: tw5 500ml 21:31 Drug: Reglan (metoCLOPramide) 10 mg Route: IVP; Site: right antecubital; tw5 22:46 Follow up: Response: No adverse reaction tw5 21:31 Drug: Decadron - Dexamethasone 10 mg Route: IVP; Site: right antecubital; tw5 22:45 Follow up: Response: No adverse reaction tw5 21:31 Drug: Ketorolac 15 mg Route: IVP; Site: right antecubital; tw5 22:45 Follow up: Response: No adverse reaction tw5 Point of Care Testing: Blood Glucose: 16:20 Blood Glucose: 96 mg/dL; jd3 Ranges: Critical Glucose Levels:Adult <50 mg/dl or >400 mg/dl <40 mg/dl or >180 mg/dl Disposition Summary: 01/31/22 22:13 Discharge Ordered Location: Home rn Problem: new rn Symptoms: have improved rn Condition: Stable rn Diagnosis - Headache rn Followup: rn - With: Nixon Boggs MD - When: As needed - Reason: Recheck today's complaints, Re-evaluation by your physician Discharge Instructions: - Discharge Summary Sheet rn - General Headache Without Cause rn Forms: - Medication Reconciliation Form rn - Thank You Letter rn - Antibiotic seed corn manager production - Prescription Opioid Use rn NIH Stroke Scale - NIH Stroke Score Date: 01/31/2022 Time: 16:00 Total Score = 0 1a. Level of Consciousness (LOC) - 0(Alert) 1b. Level of Consciousness (LOC) (Month \\T\\ Age) - 0(Both) 1c. LOC Commands (Open \\T\\ Closes Eyes/Bow Stapler) - 0(Both) 2. Best Gaze (Lateral Gaze Paresis) - 0(Normal) 3. Visual Field Loss - 0(No visual loss) 4. Facial Palsy - 0(Normal) 5a. Left Arm: Motor (10-second hold) - 0(No drift) 5b. Right Arm: Motor (10-second hold) - 0(No drift) 6a. Left Leg: Motor (5-second hold - always test supine) - 0(No drift) 6b. Right Leg: Motor (5-second hold - always test supine) - 0(No drift) 7. Limb Ataxia (finger/nose \\T\\ heel/weber - test with eyes open) - 0(Absent) 8. Sensory Loss (pinprick arms/legs/face) - 0(Normal) 9. Best Language: Aphasia (description/naming/reading) - 0(No aphasia) 10. Dysarthria (speech clarity - read or repeat words) - 0(Normal) 11. Extinction and Inattention (visual/tactile/auditory/spatial/personal) - 0(No abnormality) Initials: jd3 NIH Stroke Scale - NIH Stroke Score Date: 01/31/2022 Time: 17:30 Total Score = 0 1a. Level of Consciousness (LOC) - 0(Alert) 1b. Level of Consciousness (LOC) (Month \\T\\ Age) - 0(Both) 1c. LOC Commands (Open \\T\\ Closes Eyes/Bow Stapler) - 0(Both) 2. Best Gaze (Lateral Gaze Paresis) - 0(Normal) 3. Visual Field Loss - 0(No visual loss) 4. Facial Palsy - 0(Normal) 5a. Left Arm: Motor (10-second hold) - 0(No drift) 5b. Right Arm: Motor (10-second hold) - 0(No drift) 6a. Left Leg: Motor (5-second hold - always test supine) - 0(No drift) 6b. Right Leg: Motor (5-second hold - always test supine) - 0(No drift) 7. Limb Ataxia (finger/nose \\T\\ heel/weber - test with eyes open) - 0(Absent) 8. Sensory Loss (pinprick arms/legs/face) - 0(Normal) 9. Best Language: Aphasia (description/naming/reading) - 0(No aphasia) 10. Dysarthria (speech clarity - read or repeat words) - 0(Normal) 11. Extinction and Inattention (visual/tactile/auditory/spatial/personal) - 0(No abnormality) Initials: jd3 Signatures: Dispatcher [employer] Adonay Calabrese MD MD kdr Nieto, Roman, MD MD rn Martinez, Eric em1 Rebekah Quiros RN RN Santos Hernandez PA PA cp Davies, Jonathon, RN RN Lesvia Hayes tw5
[2022-02-01 00:42] VITALS: BP 123/91; O2SAT 96
--- NOTE | 2022-02-01 13:53 | EKG ---
Test Date: 2022-01-31 Test Time: 16:35:13 [employer] Operator: DIANNE MEASUREMENT RESULTS: Intervals: Rate: 81 [place]: 158 QRSD: 80 QT: 356 QTc: 413 [place]: P: 54 [place]: 158 QRS: 24 T: 30 INTERPRETIVE STATEMENTS: Normal sinus rhythm Normal ECG No previous ECG available for comparison Electronically Signed On 02-01-22 13:51:04 CDT by Quirino Orlando
== END 2022-01-31 22:46 | disposition home or self-care (01) ==
LOC: ER 15:56
PROC: 009U3ZX Drainage of Spinal Canal, Percutaneous Approach, Diagnostic (ICD-10-PCS; principal; 2022-01-31)
DX: R51.9 Headache, unspecified (principal); I10 Essential (primary) hypertension; Z88.0 Allergy status to penicillin; Z88.5 Allergy status to narcotic agent
CPT/HCPCS: 87070; 85025; 80048; 36415; 89050 ×2; 84157; 85610; 82945; 82947; 85730; 70450; 71045; 62270; J2765; J1100; J2175; J1170; J7040; J7030; J2405; 93005

== ENCOUNTER 2022-12-16 19:09 | Emergency (ER) | payer OTHER ==
--- OUTSIDE RECORDS SUMMARY | 2022-12-16 19:12 | XMS REPORT | Continuity of Care Document ---
:1965 Author Organization [facility] t Address [address] [facility] [address] [place] [address] Support Name Relationship Address Phone DINORA JAUREGUI Spouse [phone] [place] [address] DINORA JAUREGUI Spouse [address] [place]available [place] [id number] Maribel Roy Spouse Unavailable LENNY GRIFFIN, AZALIA Cardozo Primary Care Physician [address] [place] [id number] JOSÉ JAUREGUI Next of Kin [address] [place] [id number] ROMAN AMBROCIO MD Emergency Provider [address] [facility] [address] MD AZALIA SULLIVAN Admitting Provider [address] [phone] [place] [id number] MD NGUYỄN BROWN Emergency Provider [address] [phone] [place] [phone] MD LOIS BECKFORD JR Admitting Provider [address] [place] [id number] OTHER, ENTER NAME IN Primary Care Physician Unavailable Unav ailable NOTES MARIBEL JAUREGUI Emergency Contact [address] [phone] [place] [phone] DAVID TRIANA MD Emergency Provider [address] [place] [id number] DO JUSTICE GARNER Admitting Provider [address] [facility] [place] [id number] MD BRIAN TORRES Emergency Provider [address] [place] [address] KAMARI JAUREGUI Guarantor [address] [place] [address] Care Team Providers Name Role Phone Lenny GRIFFIN, Azalia Vargas Primary Care Physician [phone] AZALIA SULLIVAN Attending Clinician Unavailable Behzad Espinal Attending Clinician Unavailable DR SANGITA PENNINGTON Attending Clinician UnavailBrian Costa Attending Clinician Unavailable Justice Garner Attending Clinician Unavailable DUONG Attending Clinician Unavailable Lois Beckford Attending Clinician Unavailable luis Attending Clinician Unavailable CHANDNI MUNOZ Attending Clinician Unavailable KADEN DUDLEY Attending Clinician Unavailable LAURA MANSFIELD Attending Clinician Unavailable ORMAN AMBROCIO Attending Clinician Unavailable DR KATARZYNA AUGUSTE Attending Clinician Unavailable ELVIA, DR PARKS Attending Clinician Unavailable MAURA CALDWELL Attending Clinician Unavailable RADHA ORTIZ Attending Clinician Unavailable GIUSEPPE SCHAEFFER Attending Clinician Unavailable Jose Eduardo Rios Attending Clinician Unavailable MICHAEL BARTH Attending Clinician Unavailable SUSANNAH BLUE Attending Clinician Unavailable KAYLI MATA Attending Clinician Unavailable FABIANO CIFUENTES Attending Clinician Unavailable CORBIN VILLAVICENCIO V. Attending Clinician Unavailable AZALIA SULLIVAN Admitting Clinician Unavailable DR SANGITA PENNINGTON Admitting Clinician UnavailJustice Cortez Admitting Clinician Unavailable DUONG Admitting Clinician Unavailable Lois Beckford Admitting Clinician Unavailable luis Admitting Clinician Unavailable DR KATARZYNA AUGUSTE Admitting Clinician Unavailable DR CHARLY GAN Admitting Clinician Unavailable MICHAEL BARTH Admitting Clinician Unavailable SUSANNAH BLUE Admitting Clinician Unavailable Payers Payer Name Policy Type Policy Number Effective Date Expiration Date Kerwin cuello 0410 [id number] 2022 00:00:00 [facility] [id number] [employer] INSURANCE [employer] - [facility] (PPO) [place] [id number] ([place] Problems Condition Condition Condition Status Onset Resolution Last Treating Co mments Source Name Details Category Date Date Treatment Clinician Date Low back Low back Disease Active Metho di pain pain 11-03 st without without 00:00: Hospita sciatica sciatica 00 l Allergies, Adverse Reactions, Alerts Allergy Allergy Status Severity Reaction(s) Onset Inactive Treating Comm ents Source Name Type Date Date Clinician Renetta Hamilton Active Method i ins ty to 11-03 st adverse 00:00: Hospita reaction 00 l s to drug Penicill DA Active Unknown [facility] Social History Social Habit Start Date Stop Date Quantity Comments Source History SDOH [facility] Alcohol Std Drinks Hospit al History SDOH [facility] Binge [facility] History of tobacco Current smoker [facility] Gender identity [facility] Sexual orientation [facility] History of Social 2019-03-21 2019-03-[address] function 00:00:00 00:00:00 Hospital History SDOH 2018-11-03 2018-11-03 1 [facility] Alcohol Frequency 00:00:00 00:00:00 Hospita l Tobacco use and 2018-11-03 2018-11-03 Smokeless [facility] exposure 00:00:00 00:00:00 tobacco non-user Hospital Alcohol intake 2018-11-03 2018-11-03 Current [facility] 00:00:00 00:00:00 non-drinker of Hospital alcohol (finding) Sex Ass[birth year] At [birth year] [facility] 00:00:00 00:00:00 Hospital Smoking Status Start Date Stop Date Source Ex-smoker 2018-11-03 00:00:00 2018-11-03 00:00:00 [facility] Medications Ordered Filled Start Stop Current Ordering Indication Dosage Frequency Signature Comments Components Source Medication Medication Date Date Medication? Clinician (SIG) Name Name cyclobenzap Yes 10mg Q.5D Take 10 mg Methodi rine 4-[address] ([place]IL) 13:46: (two) Hospit a 10 mg 15 times a l tablet day. levoFLOXaci Yes 500mg QD Take 500 M ethodi n 4-[address] (LEVAQUIN) 13:46: mouth Hospit a 500 MG 15 daily. For l tablet 7 more days left. HYDROcodone Yes 1{tbl} Q4H Take 1 Me thodi -acetaminop 4-[address] hen (NORCO) 13:46: mouth Hospi ta 10-325 mg 15 every 4 l per tablet (four) hours as needed for moderate pain. metroNIDAZO 2019-0 Yes 500mg Q.[id number] Take 500 Methodi LE (FLAGYL) 4-09 [id number] mg by s t 500 MG 13:46: 3D mouth 3 Hospita tablet 15 (three) l times a day. 7 more days left. cyclobenzap 2019-0 Yes 10mg Q.5D Take 10 mg Methodi rine 4-[address] (FLEXERIL) 13:46: (two) Hospit a 10 mg 15 times a l tablet day. levoFLOXaci 2019-0 Yes 500mg QD Take 500 M ethodi n 4-[address] (LEVAQUIN) 13:46: mouth Hospit a 500 MG 15 daily. For l tablet 7 more days left. HYDROcodone 2019-0 Yes 1{tbl} Q4H Take 1 Me thodi -acetaminop 4-[address] [facility] [place]) 13:46: mouth Hospi ta 10-325 mg 15 every 4 l per tablet (four) hours as needed for moderate pain. metroNIDAZO 2019-0 Yes 500mg Q.[id number] Take 500 Methodi LE (FLAGYL) 4-09 [id number] mg by s t 500 MG 13:46: 3D mouth 3 Hospita tablet 15 (three) l times a day. 7 more days left. cyclobenzap 2019-0 Yes 10mg Q.5D Take 10 mg Methodi rine 4-[address] (FLEXERIL) 13:46: (two) Hospit a 10 mg 15 times a l tablet day. levoFLOXaci 2019-0 Yes 500mg QD Take 500 M ethodi n 4-[address] (LEVAQUIN) 13:46: mouth Hospit a 500 MG 15 daily. For l tablet 7 more days left. HYDROcodone 2019-0 Yes 1{tbl} Q4H Take 1 Me thodi -acetaminop 4-[address] hen ([place]) 13:46: mouth Hospi ta 10-325 mg 15 every 4 l per tablet (four) hours as needed for moderate pain. metroNIDAZO 2019-0 Yes 500mg Q.[id number] Take 500 Methodi LE (FLAGYL) 4-09 [id number] mg by s t 500 MG 13:46: 3D mouth 3 Hospita tablet 15 (three) l times a day. 7 more days left. cyclobenzap 2019-0 Yes 10mg Q.5D Take 10 mg Methodi rine 4-[address] ([place]IL) 13:46: (two) Hospit a 10 mg 15 times a l tablet day. levoFLOXaci 2019-0 Yes 500mg QD Take 500 M ethodi n 4-[address] (LEVAQUIN) 13:46: mouth Hospit a 500 MG 15 daily. For l tablet 7 more days left. HYDROcodone 2019-0 Yes 1{tbl} Q4H Take 1 Me thodi -acetaminop 4-[address] hen ([place]) 13:46: mouth Hospi ta 10-325 mg 15 every 4 l per tablet (four) hours as needed for moderate pain. metroNIDAZO 2019-0 Yes 500mg Q.[id number] Take 500 Methodi LE (FLAGYL) 4-09 [id number] mg by s t 500 MG 13:46: 3D mouth 3 Hospita tablet 15 (three) l times a day. 7 more days left. cyclobenzap 2019-0 Yes 10mg Q.5D Take 10 mg Methodi rine 4-[address] ([place]) 13:46: (two) Hospit a 10 mg 15 times a l tablet day. levoFLOXaci 2019-0 Yes 500mg QD Take 500 M ethodi n 4-[address] (LEVAQUIN) 13:46: mouth Hospit a 500 MG 15 daily. For l tablet 7 more days left. HYDROcodone 2019-0 Yes 1{tbl} Q4H Take 1 Me thodi -acetaminop 4-[address] hen ([place]) 13:46: mouth Hospi ta 10-325 mg 15 every 4 l per tablet (four) hours as needed for moderate pain. metroNIDAZO 2019-0 Yes 500mg Q.[id number] Take 500 Methodi LE (FLAGYL) 4-09 [id number] mg by s t 500 MG 13:46: 3D mouth 3 Hospita tablet 15 (three) l times a day. 7 more days left. cyclobenzap 2019-0 Yes 10mg Q.5D Take 10 mg Methodi rine 4-[address] ([place]) 13:46: (two) Hospit a 10 mg 15 times a l tablet day. levoFLOXaci 2019-0 Yes 500mg QD Take 500 M ethodi n 4-[address] (LEVAQUIN) 13:46: mouth Hospit a 500 MG 15 daily. For l tablet 7 more days left. HYDROcodone 2019-0 Yes 1{tbl} Q4H Take 1 Me thodi -acetaminop 4-[address] [facility] ([place]) 13:46: mouth Hospi ta 10-325 mg 15 every 4 l per tablet (four) hours as needed for moderate pain. metroNIDAZO 2019-0 Yes 500mg Q.[id number] Take 500 Methodi LE (FLAGYL) 4-09 [id number] mg by s t 500 MG 13:46: 3D mouth 3 Hospita tablet 15 (three) l times a day. 7 more days left. cyclobenzap 2019-0 Yes 10mg Q.5D Take 10 mg Methodi rine 4-[address] ([place]) 13:46: (two) Hospit a 10 mg 15 times a l tablet day. levoFLOXaci 2019-0 Yes 500mg QD Take 500 M ethodi n 4-[address] (LEVAQUIN) 13:46: mouth Hospit a 500 MG 15 daily. For l tablet 7 more days left. HYDROcodone 2019-0 Yes 1{tbl} Q4H Take 1 Me thodi -acetaminop 4-09 tablet by [facility] ([place]) 13:46: mouth Hospi ta 10-325 mg 15 every 4 l per tablet (four) hours as needed for moderate pain. metroNIDAZO 2019-0 Yes 500mg Q.[id number] Take 500 Methodi LE (FLAGYL) 4-09 [id number] mg by s t 500 MG 13:46: 3D mouth 3 Hospita tablet 15 (three) l times a day. 7 more days left. cyclobenzap 2019-0 Yes 10mg Q.5D Take 10 mg Methodi rine 4-[address] ([place]) 13:46: (two) Hospit a 10 mg 15 times a l tablet day. levoFLOXaci 2019-0 Yes 500mg QD Take 500 M ethodi n 4-[address] (LEVAQUIN) 13:46: mouth Hospit a 500 MG 15 daily. For l tablet 7 more days left. HYDROcodone 2019- Yes 1{tbl} Q4H Take 1 Me thodi -acetaminop 4-[address] hen (NORCO) 13:46: mouth Hospi ta 10-325 mg 15 every 4 l per tablet (four) hours as needed for moderate pain. metroNIDAZO 2018-0 Yes 500mg Q.[id number] Take 500 Methodi LE (FLAGYL) 4-09 [id number] mg by s t 500 MG 13:46: 3D mouth 3 Hospita tablet 15 (three) l times a day. 7 more days left. Immunizations Ordered Immunization Filled Immunization Date Status Commen ts Source Name Name PFIZER COVID-19 MRNA 2020-10-24 Completed Meth odist VACCINATION 00:00:00 [facility] PFIZER COVID-19 MRNA 2020-10-24 Completed Meth odist VACCINATION 00:00:00 [facility] PFIZER COVID-19 MRNA 2020-10-24 Completed Meth odist VACCINATION 00:00:00 [facility] PFIZER COVID-19 MRNA 2020-10-24 Completed Meth odist VACCINATION 00:00:00 [facility] PFIZER COVID-19 MRNA 2020-10-24 Completed Meth odist VACCINATION 00:00:00 [facility] PFIZER COVID-19 MRNA 2020-10-24 Completed Meth odist VACCINATION 00:00:00 [facility] PFIZER COVID-19 MRNA 2020-10-24 Completed Meth odist VACCINATION 00:00:00 [facility] PFIZER COVID-19 MRNA 2020-10-24 Completed Meth odist VACCINATION 00:00:00 [facility] PFIZER COVID-19 MRNA 2020-10-03 Completed Meth odist VACCINATION 00:00:00 [facility] PFIZER COVID-19 MRNA 2020-10-03 Completed Meth odist VACCINATION 00:00:00 [facility] PFIZER COVID-19 MRNA 2020-10-03 Completed Meth odist VACCINATION 00:00:00 [facility] PFIZER COVID-19 MRNA 2020-10-03 Completed Meth odist VACCINATION 00:00:00 [facility] PFIZER COVID-19 MRNA 2020-10-03 Completed Meth odist VACCINATION 00:00:00 [facility] PFIZER COVID-19 MRNA 2020-10-03 Completed Meth odist VACCINATION 00:00:00 [facility] PFIZER COVID-19 MRNA 2020-10-03 Completed Meth odist VACCINATION 00:00:00 [facility] COVID-19 MRNA 2020-10-03 Completed Meth odist VACCINATION 00:00:00 Hospital Vital Signs Vital Name Observation Time Observation Value Comments Source Height 2022-07-03 21:17:00 180.34 CM Weight 2022-07-03 21:17:00 106.59 KG Procedures This patient has no known procedures. Plan of Care Planned Activity Planned Date Details Comments Source Future Scheduled 2022-10-31 COLONOSCOPY SCREENING [facility] Test 21:40:28 [code = COLONOSCOPY SCREENING] Future Scheduled 2022-10-31 SHINGLES VACCINES (1 [facility] Test 21:40:28 of 2) [code = SHINGLES VACCINES (1 of 2)] Future Scheduled 2022-10-31 COVID-19 VACCINE (3 - [facility] Test 21:40:28 Booster for Pfizer series) [code = COVID-19 VACCINE (3 - Booster for Pfizer series)] Future Scheduled 2022-10-31 INFLUENZA VACCINE Method [facility] Hospital Test 21:40:28 [code = INFLUENZA VACCINE] Future Scheduled 2022-10-15 COVID-19 VACCINE (3 - [facility] Test 15:31:39 Booster for Pfizer series) [code = COVID-19 VACCINE (3 - Booster for Pfizer series)] Future Scheduled 2022-10-15 INFLUENZA VACCINE Method is Hospital Test 15:31:39 [code = INFLUENZA VACCINE] Future Scheduled 2022-10-15 COLONOSCOPY SCREENING [facility] Test 15:31:39 [code = COLONOSCOPY SCREENING] Future Scheduled 2022-10-15 SHINGLES VACCINES (1 [facility] Test 15:31:39 of 2) [code = SHINGLES VACCINES (1 of 2)] Future Scheduled 2022-10-15 COVID-19 VACCINE (3 - [facility] Test 15:31:39 Booster for Pfizer series) [code = COVID-19 VACCINE (3 - Booster for Pfizer series)] Future Scheduled 2022-10-15 INFLUENZA VACCINE Method is Hospital Test 15:31:39 [code = INFLUENZA VACCINE] Future Scheduled 2022-10-15 COLONOSCOPY SCREENING [facility] Test 15:31:39 [code = COLONOSCOPY SCREENING] Future Scheduled 2022-10-15 SHINGLES VACCINES (1 [facility] Test 15:31:39 of 2) [code = SHINGLES VACCINES (1 of 2)] Future Scheduled 2022-10-15 COVID-19 VACCINE (3 - [facility] Test 15:31:39 Booster for Pfizer series) [code = COVID-19 VACCINE (3 - Booster for Pfizer series)] Future Scheduled 2022-10-15 INFLUENZA VACCINE Method [facility] Test 15:31:39 [code = INFLUENZA VACCINE] Future Scheduled 2022-10-15 COLONOSCOPY SCREENING [facility] Test 15:31:39 [code = COLONOSCOPY SCREENING] Future Scheduled 2022-10-15 SHINGLES VACCINES (1 [facility] Test 15:31:39 of 2) [code = SHINGLES VACCINES (1 of 2)] Future Scheduled 2022-07-11 COLONOSCOPY SCREENING [facility] Test 18:54:47 [code = COLONOSCOPY SCREENING] Future Scheduled 2022-07-11 SHINGLES VACCINES (1 [facility] Test 18:54:47 of 2) [code = SHINGLES VACCINES (1 of 2)] Future Scheduled 2022-07-11 COVID-19 VACCINE (3 - [facility] Test 18:54:47 Booster for Pfizer series) [code = COVID-19 VACCINE (3 - Booster for Pfizer series)] Future Scheduled 2022-07-11 INFLUENZA VACCINE Method [facility] Hospital Test 18:54:47 [code = INFLUENZA VACCINE] Future Scheduled 2022-07-11 COLONOSCOPY SCREENING [facility] Test 18:54:47 [code = COLONOSCOPY SCREENING] Future Scheduled 2022-07-11 SHINGLES VACCINES (1 [facility] Test 18:54:47 of 2) [code = SHINGLES VACCINES (1 of 2)] Future Scheduled 2022-07-11 COVID-19 VACCINE (3 - [facility] Test 18:54:47 Booster for Pfizer series) [code = COVID-19 VACCINE (3 - Booster for Pfizer series)] Future Scheduled 2022-07-11 INFLUENZA VACCINE Method is Hospital Test 18:54:47 [code = INFLUENZA VACCINE] Future Scheduled 2022-05-30 HEPATITIS B VACCINES Met [facility] Test 21:52:37 (1 of 3 - 3-dose series) [code = HEPATITIS B VACCINES (1 of 3 - 3-dose series)] Future Scheduled 2022-05-30 COLONOSCOPY SCREENING [facility] Test 21:52:37 [code = COLONOSCOPY SCREENING] Future Scheduled 2022-05-30 SHINGLES VACCINES (1 Met [facility] Test 21:52:37 of 2) [code = SHINGLES VACCINES (1 of 2)] Future Scheduled 2022-05-30 COVID-19 VACCINE (3 - [facility] Test 21:52:37 Booster for Pfizer series) [code = COVID-19 VACCINE (3 - Booster for Pfizer series)] Future Scheduled 2022-05-30 INFLUENZA VACCINE Method is Hospital Test 21:52:37 [code = INFLUENZA VACCINE] Future Scheduled 2022-05-30 HEPATITIS B VACCINES [facility] Test 21:52:37 (1 of 3 - 3-dose series) [code = HEPATITIS B VACCINES (1 of 3 - 3-dose series)] Future Scheduled 2022-05-30 COLONOSCOPY SCREENING [facility] Test 21:52:37 [code = COLONOSCOPY SCREENING] Future Scheduled 2022-05-30 SHINGLES VACCINES (1 Met [facility] Test 21:52:37 of 2) [code = SHINGLES VACCINES (1 of 2)] Future Scheduled 2022-05-30 COVID-19 VACCINE (3 - [facility] Test 21:52:37 Booster for Pfizer series) [code = COVID-19 VACCINE (3 - Booster for Pfizer series)] Future Scheduled 2022-05-30 INFLUENZA VACCINE Method [facility] Test 21:52:37 [code = INFLUENZA VACCINE] Encounters Start End Encounter Admission Attending Care Care Encounter Source Date/Time Date/Time Type Type Clinicians Facility Department ID 2022-10-15 2022-10-16 Inpatient ER D'AVILEZ, [facility] [id number] [place] 22:03:00 19:01:00 AZALIA -[id number] [facility] 2022-07-25 2022-07-25 Emergency ER Espinal, [facility] [id number] [place] 10:39:00 14:55:00 Behzad -[id number] [facility] 2022-07-03 2022-07-04 Outpatient E GORGE, [facility] [id number] [facility] 20:49:00 00:31:00 [facility] 2022-05-31 2022-06-01 emergency [id number] 21:36:00 00:55:00 [id number] 2022-05-31 2022-06-01 Emergency ER Tony, [facility] [id number] [place] 21:36:00 00:55:00 Brian -[id number] [facility] 2022-02-23 2022-02-24 Inpatient ER Pascual, [facility] [id number] [place] 14:22:00 17:30:00 Justice -[id number] [facility]ly [facility] 2022-02-20 2022-02-20 Outpatient ARLEY [place] [id number] [place] 12:08:00 12:08:00 _BRITTANY 26 [facility] 2021-12-17 2021-12-21 Inpatient ER Reyes, [facility] [id number] [place] 15:48:00 17:57:00 Lois -[id number] [facility] 2021-03-16 2021-03-16 Outpatient cain_jo MMG MMG [id number] [place] 01:31:00 01:31:00 0819 [facility] 2021-02-09 2021-02-09 Outpatient cain_jo MMG MMG [id number] [place] 02:14:00 02:14:00 0715 [facility] Group 2021-01-06 2021-01-06 Outpatient cain_jo MMG MMG [id number] [place] 01:03:00 01:03:00 0611 [facility] 2020-11-25 2020-11-27 Inpatient PATRICIA Mcmahan'AVILEZ, [facility] [id number] [place] 14:20:00 18:05:00 AZALIA -[id number] [facility] 2020-10-24 2020-10-24 Outpatient TAMMY [facility] [id number] [address] [place] [address] 00:00:00 00:00:[address] [place] [address] 2020-10-03 2020-10-03 Outpatient [facility] [id number] [facility] [place] 00:00:00 00:00:[address] 2020-06-15 2020-06-15 Outpatient cain_jo MMG MMG [id number] [place] 02:21:00 02:21:00 [facility] 2020-06-15 2020-06-15 Outpatient cain_jo MMG MMG [id number] [place] 02:21:00 02:21:00 0507 [facility] 2020-02-22 2020-02-22 Emergency ER SAIFI, [facility] [id number] [place] 05:00:00 06:52:00 KADEN -[id number] [facility] 2020-01-31 2020-01-31 Outpatient cain_jo MMG MMG [id number] [place] 12:02:00 12:02:00 0705 [facility] 2019-11-22 2019-11-22 Outpatient cain_jo MMG MMG [id number] [place] 12:05:00 12:05:00 0426 [facility] 2019-11-17 2019-11-17 Outpatient cain_jo MMG MMG [id number] [place] 12:02:00 12:02:00 0421 [facility] 2019-10-29 2019-10-29 Outpatient EL D'AVILEZ, [facility] [id number] [place] 09:15:00 09:15:00 AZALIA -[id number] [facility] 2019-09-28 2019-10-01 Inpatient EL D'AVILEZ, [facility] [id number] [place] 19:23:00 09:56:00 AZALIA -[id number] [facility] 2019-05-17 2019-05-17 Emergency ER BASSETT, [facility] [id number] [place] 19:01:00 20:35:00 LAURA -[id number] [facility] 2019-02-03 2019-02-03 Outpatient EL D'AVILEZ, [facility] [id number] [place] 10:56:00 10:56:00 AZALIA -[id number] [facility] 2018-11-01 2018-11-02 Emergency ER FRAME, [facility] [id number] [place] 19:31:00 02:26:00 ROMAN -[id number] Former[facility] 2018-10-28 2018-10-31 Inpatient EL D'AVILEZ, [facility] [id number] [place] 10:55:00 13:13:00 AZALIA -[id number] [facility] 2018-10-06 2018-10-06 Outpatient E KALYANI, [facility] [id number] [facility] 08:27:00 09:45:00 [facility]NA [facility] 2018-10-05 2018-10-05 Outpatient E CHARLY GAN [facility] [id number] [facility] 18:41:00 23:47:00 Medica [facility] 2018-05-29 2018-05-29 Outpatient EL D'AVILEZ, [facility] [id number] [place] 07:48:00 07:48:00 AZALIA -[id number] [facility] 2015-12-02 2015-12-02 Outpatient EL D'AVILEZ, [facility] [id number] [place] 08:23:00 08:23:00 AZALIA -[id number] Formerly [facility] 2014-05-11 2014-05-11 Outpatient EL D'AVILEZ, [facility] [id number] [place] 11:49:00 11:49:00 AZALIA -[id number] [facility] 2013-07-25 2013-07-26 Emergency ER YARINY, [facility] [id number] [place] 21:58:00 01:57:00 MAURA -[id number] [facility] 2013-07-22 2013-07-22 Emergency ER UGOR, [facility] [id number] [place] 19:24:00 22:39:00 RADHA [id number] [facility]ly [facility] 2013-06-18 2013-06-18 Emergency ER MAKSIM, [facility] [id number] [place] 18:11:00 21:22:00 GIUSEPPE -[id number] Formerly [facility] 2012-02-12 2012-02-12 Outpatient EL D'AVILEZ, [facility] [id number] [place] 07:06:00 07:06:00 AZALIA -[id number] Formerly [facility] 2010-08-10 2010-08-10 Outpatient PATRICIA Rios, [facility] [id number] [place] 14:37:00 14:37:00 Jose Eduardo -[id number] [facility] 2010-08-07 2010-08-08 Emergency ER UGORGUERRERO, [facility] [id number] [place] 20:03:00 00:35:00 RADHA -[id number] [facility] 2009-12-07 2009-12-07 Inpatient ER LARY, [facility] [id number] [place] 01:15:00 12:18:00 MICHAEL -[id number] [facility] 2009-05-10 2009-05-10 Outpatient RAJESH Rios, [facility] [id number] [place] 10:47:00 10:47:00 Jose Eduardo -[id number] [facility] 2008-12-10 2008-12-10 Outpatient PATRICIA BLUE, [facility] [id number] [place] 07:41:00 07:41:00 SUSANNAH -[id number] [facility] 2008-08-07 2008-08-09 Inpatient ER SU, [facility] [id number] [place] 21:00:00 10:15:00 SUSANNAH -[id number] [facility] 2008-06-01 2008-06-01 Emergency ER IMMARAJ, [facility] [id number] [place] 12:34:00 16:36:00 PREMSWARJUSTIN -[id number] d a [facility] 2004-09-28 2004-09-28 Outpatient PATRICIA CIFUENTES, [facility] [facility] [id number] 10:36:00 10:36:00 FABIANO -[id number] Formerly [facility] 2003-10-08 2003-10-08 Outpatient RAJESH Rios, [facility] [id number] 13:44:00 13:44:00 Jose Eduardo -[id number] Formerly [facility] 2001-04-30 2001-04-30 Outpatient CORBIN YIN [facility] [id number] [address] 17:29:00 17:29:00 -[id number] Formerly [facility] Results Test Description Test Time Test Comments Results Result [facility] e Comments CT ABDOMEN AND 2022-07-03 PELVIS WITH 23:22:59 CONTRAST *OW* [facility] CENTERName: KAMARI JAUREGUI : 1965 Sex: M CT SCAN OF THE ABDOMEN AND PELVIS WITH CONTRASTDictation Location: [id number] HISTORY: Abdominal pain left lower quadrantTECHNIQUE: Helical CT of the abdomen and pelvis was performed after the administration of dosed IV contrast without complication. Coronal and sagittal reconstructions were obtained. Unless otherwise specified, incidental findings do not require dedicated imaging follow-up. This exam was performed according to our departmental dose optimization program, which includes automated exposure control, adjustment of the mA and/ or KV according to patient size and/or use of iterative reconstruction technique.DLP 513 mGy*cmFINDINGS:The visualized lung bases are clear. No evidence of pleural effusion. Liver is normal in size without intrahepatic biliary dilatation or focal mass. There is mild hepatic steatosis.The gallbladder and biliary ducts are unremarkable. The spleen, and adrenal glands are normal. There is no evidence of hydronephrosis, solid mass, pyelonephritis or obstructing kidney stone. There is a 1.3 cm simple cyst at the mid to lower pole left kidney. No further imaging follow-up recommended. Visualized ureters are unremarkable.There is no evidence of pancreatitis, pancreatic mass, atrophy, calcification. There is no abdominal free fluid or adenopathy. There is no free air or abscess.There is no bowel wall thickening or dilatation. Clips are present at the cecum from prior appendectomy. There is mild colon diverticulosis without evidence of diverticulitis. There is no evidence of diverticulitis, colitis or bowel obstruction. Small bowel and stomach are unremarkable without wall thickening or distention.In the pelvis, there is no free fluid or adenopathy present. The bladder is unremarkable without distention, wall thickening mass or calculi.The vascular structures are normal. No AAA. Mild degenerative changes are present in the spine.IMPRESSION:1. No acute findings demonstrated.2. Mild hepatic steatosis without focal liver lesions. Mild colon diverticulosis without diverticulitis.Electron ically signed by: Jyotsna Randall MD 07/03/2022 11:22 PM CHANGE COORDINATOR GENERAL CHEMISTRY 13 *OW* john 2022-07-03 22:44:00 Test Item Value Reference Range Interpretation Comme nts GLUCOSE (test code = GGUL) 91 mg/dL 73-118 BUN (test code = GBUN) 11 mg/dL 7-22 CREATININE (test code = GCRE) 1.2 mg/dL 0.6-1.2 URIC ACID (test code = GUA) 6.5 mg/dL 3.6-8.0 CALCIUM (test code = GCL+) 9.7 mg/dL 8.0-10.3 ALBUMIN (test code = GALB) 4.1 g/dL 3.5-5.5 PROTEIN (test code = GTP) 7.9 g/dL 6.4-8.1 ALT (test code = GALT) 40 U/L 10-47 AST (test code = BUSHRA) 34 U/L 11-38 ALK PHOS (test code = GALP) 74 U/L 53-128 BILI TOTAL (test code = GTBIL) 0.8 mg/dL 0.2-1.6 GGT (test code = GGGT) 72 U/L 5-65 H AMYLASE (test code = GAMY) 23 U/L 14-97 LACTIC ACID OW2022-07-03 22:21:00 Test Item Value Reference Range Interpretation Comments LACTATE (test code = DEMARIO) 1.05 mmol/L 0.53-2.10 URINALYSIS W/O MICROSCOPICOW2022-07-03 22:13:00 Test Item Value Reference Range Interpretation Comments COLOR (test code = Yellow YELLOW COLU) CLARITY (test code = Clear CLEAR CLA) GLUCOSE UR (test Negative NEGATIVE code = UA GLUCOSE) BILI UR (test code = Negative NEGATIVE BILE) KETONES UR (test Negative NEGATIVE code = CHRIS) SP GRAVITY (test 1.025 1.005-1.030 code = SPGR) PH UR (test code = 6.0 4.5-8.0 PH) PROTEIN UR (test Negative NEGATIVE code = PU) NITRITE UR (test Negative NEGATIVE code = NITRITE) UROBIL UR (test code 0.2 E.U./dL = GUROQ) UROBIL UR (test code UROBILINOGEN = GUROQC) REFERENCE RANGE 0.2 - 1.0 EU/dL BLOOD UR (test code Negative NEGATIVE = UA BLOOD) LEUK ES UR (test Negative NEGATIVE code = LEUK) CBC (INCLUDES AUTOMATED DIFFERENTIAL) *2022-07-03 22:09:00 Test Item Value Reference Range Interpretation Comments WBC (test code = WBC) 10.2 10\S\3/uL 4.5-11.0 RBC (test code = RBC) 5.21 10\S\6/uL 4.20-5.60 HGB (test code = HBG) 16.9 g/dL 14.0-18.0 HCT (test code = HCT) 51.7 % 35.0-46.0 H MCV (test code = MCV) 99.3 fL 80.0-94.0 H MCH (test code = MCH) 32.4 pg 27.0-31.0 H MCHC (test code = MCHC) 32.7 g/dL 32.0-36.0 RDW (test code = RDW) 13.2 % 11.5-14.5 PLT (test code = PLT) 370 10\S\3/uL 130-400 MPV (test code = OMPV) 7.4 fL 6.2-10.2 NEUTROP # (test code = NE#) 6.0 10\S\3/uL 2.0-8.0 LYMPH # (test code = LY#) 3.3 10\S\3/uL 1.2-4.0 MID # (test code = GMID#) 0.9 10\S\3/uL 0.0-1.1 GRAN % (test code = GRA%) 58.4 % 35.0-73.0 LYMPH % (test code = GLY%) 32.3 % 20.0-55.0 MID % (test code = GMID%) 9.3 % 0.0-10.0 CHEM8+ i-STAT OW2018-10-06 09:00:00 Test Item Value Reference Range Interpretation Comments SODIUM (test code = YULISSA) 139 mmol/L 138-146 POTASSIUM (test code = KI) 4.0 mmol/L 3.5-4.9 CHLORIDE (test code = CLI) 101 mmol/L 98-109 CA IONIZED (test code = ICAI) 1.05 mmol/L 1.12-1.32 L GLUCOSE (test code = GLUI) 99 mg/dL 75-100 TCO2 (test code = TCO2) 23 mmol/L 24-29 L BUN (test code = BUN1) 9 mg/dL 8-26 CREATININE (test code = CREAI) 1.2 mg/dL 0.6-1.3 ANION GAP (test code = GANG) 20.0 mmol/L HGB (test code = MHB) 15.6 g/dL 12.0-17.0 HCT (test code = MHCT) 46.0 % 38.0-51.0 CBC (INCLUDES AUTOMATED DIFFERENTIAL) *2018-10-06 08:59:00 Test Item Value Reference Range Interpretation Comments WBC (test code = WBC) 10.4 10\S\3/uL 4.5-11.0 RBC (test code = RBC) 4.65 10\S\6/uL 4.20-5.60 HGB (test code = HBG) 15.4 g/dL 14.0-18.0 HCT (test code = HCT) 44.6 % 35.0-46.0 MCV (test code = MCV) 95.9 fL 80.0-94.0 H MCH (test code = MCH) 33.1 pg 27.0-31.0 H MCHC (test code = MCHC) 34.5 g/dL 32.0-36.0 RDW (test code = RDW) 13.0 % 11.5-14.5 PLT (test code = PLT) 286 10\S\3/uL 130-400 MPV (test code = OMPV) 7.2 fL 6.2-10.2 NEUTROP # (test code = NE#) 7.9 10\S\3/uL 2.0-8.0 LYMPH # (test code = LY#) 1.6 10\S\3/uL 1.2-4.0 MID # (test code = GMID#) 0.9 10\S\3/uL 0.0-1.1 GRA % (test code = GRA%) 76.3 % 35.0-73.0 H LYMPH % (test code = GLY%) 15.4 % 20.0-55.0 L MID % (test code = GMID%) 8.3 % 0.0-10.0 CT ABDOMEN AND PELVIS WITH [id number] 21:41:19CT abdomen and pelvis with contrastLocation Code: [id number] HISTORY: [id number]: Left lower quadrant painCOMPARISON: NoneTechnique: Helical CT of the abdomen and pelvis was performed followingthe administration of intravenous contrast. Thin section axial, sagittaland coronal images were obtained. Automatic exposure control was utilized. FINDINGS:The lung bases are clear with the exception of a calcified granuloma. There is nonspecific induration seen adjacent gastric antrum and first portionof the duodenum suggestive of a possible inflammatory process.The liver, adrenal glands, kidneys, pancreas, and spleen are unremarkable withthe exception of a left renal cyst and heterogeneous enhancement of the liverpossibly reflective of underlying steatosis.The gallbladder is unremarkableThe unopacified loops of bowel demonstrate no evidence of obstruction. Theappendix is surgically absent. .Multiple diverticula are noted throughout thedescending colon and sigmoid. There is mild mesenteric edema seen adjacent tothe sigmoid colon. Although nonspecific this appearance may reflect an early orresolving diverticulitis. No aggressive osseous lesions are seen. IMPRESSION: 1.Multiple diverticula are noted throughout the descending colon and sigmoid. There is mild mesenteric edema seen adjacent to the sigmoid colon. Althoughnonspecific this appearance may reflect an early or resolving diverticulitis. 2.There is nonspecific induration seen adjacent gastric antrum and firstportion of the duodenum suggestive ofa possible inflammatory process,recommend further evaluation objects visualization/endoscopy.URINALYSIS W/O MICROSCOPICOW2018-10-05 20:49:00 Test Item Value Reference Range Interpretation Comments COLOR (test code = Yellow YELLOW COLU) CLARITY (test code = Clear CLEAR CLA) GLUCOSE UR (test Negative NEGATIVE code = UA GLUCOSE) BILI UR (test code = Negative NEGATIVE BILE) KETONES UR (test Negative NEGATIVE code = CHRIS) SP GRAVITY (test 1.010 1.005-1.030 code = SPGR) PH UR (test code = 6.5 4.5-8.0 PH) PROTEIN UR (test Negative NEGATIVE code = PU) NITRITE UR (test Negative NEGATIVE code = NITRITE) UROBIL UR (test code 0.2 E.U./dL = GUROQ) UROBIL UR (test code UROBILINOGEN = GUROQC) REFERENCE RANGE 0.2 - 1.0 EU/dL BLOOD UR (test code Negative NEGATIVE = UA BLOOD) LEUK ES UR (test Negative NEGATIVE code = LEUK) TROPONIN I i-STAT OW2018-10-05 19:35:00 Test Item Value Reference Range Interpretation Comments TROPONIN I (test code = A84) 0.010 ng/mL 0.000-0.045 CHEM8+ i-STAT OW2018-10-05 19:24:00 Test Item Value Reference Range Interpretation Comments SODIUM (test code = YULISSA) 139 mmol/L 138-146 POTASSIUM (test code = KI) 3.7 mmol/L 3.5-4.9 CHLORIDE (test code = CLI) 101 mmol/L 98-109 CA IONIZED (test code = ICAI) 1.11 mmol/L 1.12-1.32 L GLUCOSE (test code = GLUI) 86 mg/dL 75-100 TCO2 (test code = TCO2) 27 mmol/L 24-29 BUN (test code = BUN1) 8 mg/dL 8-26 CREATININE (test code = CREAI) 1.1 mg/dL 0.6-1.3 ANION GAP (test code = GANG) 15.0 mmol/L HGB (test code = MHB) 16.0 g/dL 12.0-17.0 HCT (test code = MHCT) 47.0 % 38.0-51.0 PROTHROMBIN TIME i-STAT OW2018-10-05 19:21:00 Test Item Value Reference Range Interpretation Comments PT (test code = 12.4 s 10.0-13.0 PT1) INR (test code = 1.0 INR) INRH (test code = SUGGESTED THERAPEUTIC INRH) RANGE FOR INR: 2.5 - 3.5 For Patients with Prosthetic Valves or Patients with recurrent Thromboembolic Events 2.0 - 3.0 For Most Other Applications CBC (INCLUDES AUTOMATED DIFFERENTIAL) *2018-10-05 19:21:00 Test Item Value Reference Range Interpretation Comments WBC (test code = WBC) 10.3 10\S\3/uL 4.5-11.0 RBC (test code = RBC) 4.73 10\S\6/uL 4.20-5.60 HGB (test code = HBG) 15.8 g/dL 14.0-18.0 HCT (test code = HCT) 44.9 % 35.0-46.0 MCV (test code = MCV) 95.0 fL 80.0-94.0 H MCH (test code = MCH) 33.4 pg 27.0-31.0 H MCHC (test code = MCHC) 35.2 g/dL 32.0-36.0 RDW (test code = RDW) 13.0 % 11.5-14.5 PLT (test code = PLT) 288 10\S\3/uL 130-400 MPV (test code = OMPV) 7.5 fL 6.2-10.2 NEUTROP # (test code = NE#) 6.9 10\S\3/uL 2.0-8.0 LYMPH # (test code = LY#) 2.4 10\S\3/uL 1.2-4.0 MID # (test code = GMID#) 1.1 10\S\3/uL 0.0-1.1 GRA % (test code = GRA%) 66.7 % 35.0-73.0 LYMPH % (test code = GLY%) 23.0 % 20.0-55.0 MID % (test code = GMID%) 10.3 % 0.0-10.0 H
--- NOTE | 2022-12-16 21:44 | RAD REPORT ---
EXAM DESCRIPTION: RAD - Tib Fib Left - 12/16/2022 9:37 pm CLINICAL HISTORY: trauma to mid weber COMPARISON: <Comparisons> FINDINGS: Soft tissue swelling is noted. No fracture or dislocation is seen. No soft tissue gas.
--- NOTE | 2022-12-16 21:47 | ER ---
Nurse's Notes [facility] Name: Philippe Farooq Age: 57 yrs Sex: Male : 1965 Arrival Date: 12/16/2022 Time: 19:09 Bed 8 Private MD: Diagnosis: Abrasion, left lower leg, initial encounter Presentation: 12/16 20:11 Chief complaint: Patient states: I fell and got caught on a bolt the tore some of my kd3 skin on my left leg on Saturday. Now my whole leg is red and swelling and it hurts. I think it may be infected. Coronavirus screen: Vaccine status: Patient reports receiving the 2nd dose of the covid vaccine. Ebola Screen: No symptoms or risks identified at this time. Initial Sepsis Screen: Does the patient meet any 2 criteria? No. Patient's initial sepsis screen is negative. Does the patient have a suspected source of infection? No. Patient's initial sepsis screen is negative. Risk Assessment: Do you want to hurt yourself or someone else? Patient reports no desire to harm self or others. Onset of symptoms was December 16, 2022. 20:11 Method Of Arrival: Ambulatory kd3 20:11 Acuity: LAURA 3 kd3 Triage Assessment: 20:13 General: Appears uncomfortable, Behavior is calm, cooperative. Pain: Complains of pain kd3 in medial aspect of left calf and left weber. Musculoskeletal: Swelling present in medial aspect of left calf and left weber. Historical: - Allergies: 20:13 Morphine; kd3 20:13 PENICILLINS; kd3 - Home Meds: 20:13 Metoprolol Tartrate Oral [Active]; Hydroxyzine Oral [Active]; Famotidine Oral [Active]; kd3 - PMHx: 20:13 Hypertensive disorder; kd3 - Immunization history:: Adult Immunizations up to date, Last tetanus immunization: < 5 years ago. - Social history:: Smoking status: Patient/guardian denies using tobacco, but has a distant history of tobacco abuse. Screenin:12 [facility] ED Fall Risk Assessment (Adult) History of falling in the last 3 months, vc1 including since admission No falls in past 3 months (0 pts) Confusion or Disorientation No (0 pts) Intoxicated or Sedated No (0 pts) Impaired Gait Yes (1 pt) Mobility Assist Device Used No (0 pt) Altered Elimination No (0 pt) Score/Fall Risk Level 0 - 2 = Low Risk Oriented to surroundings, Maintained a safe environment, Educated pt \T\ family on fall prevention, incl call for assistance when getting out of bed. Abuse screen: Denies threats or abuse. Nutritional screening: No deficits noted. Tuberculosis screening: No symptoms or risk factors identified. Assessment: 21:00 Reassessment: See triage assessment. vc1 22:00 Reassessment: No changes from previously documented assessment. Patient and/or family vc1 updated on plan of care and expected duration. Pain level reassessed. Patient is alert, oriented x 3, equal unlabored respirations, skin warm/dry/pink. Vital Signs: 20:11 BP 146 / 86; Pulse 72; Resp 19; Temp 98.2(O); Pulse Ox 98% on R/A; Weight 111.13 kg; kd3 Height 5 ft. 11 in. ; 22:00 BP 144 / 78; Pulse 70; Resp 18; Pulse Ox 97% on R/A; vc1 20:11 Body Mass Index 34.17 (111.13 kg, 180.34 cm) kd3 ED Course: 19:10 Patient arrived in ED. mr 20:13 Triage completed. kd3 20:13 Arm band placed on right wrist. kd3 20:15 Kirill Gerardo MD is Attending Physician. bs3 21:00 Patient has correct armband on for positive identification. Bed in low position. Call vc1 light in reach. Pulse ox on. NIBP on. 21:39 Tib Fib Left XRAY In Process Unspecified. EDMS 21:59 Jolene Cueva, RN is Primary Nurse. vc1 22:13 No provider procedures requiring assistance completed. Patient did not have IV access vc1 during this emergency room visit. Administered Medications: 22:11 Drug: Clindamycin PO 300 mg Route: PO; vc1 22:15 Follow up: Response: Medication administered at discharge. vc1 Medication: 22:13 VIS not applicable for this client. vc1 Outcome: 21:47 Discharge ordered by . bs3 22:13 Discharged to home ambulatory, with family. vc1 22:13 Condition: good 22:13 Discharge instructions given to patient, Instructed on discharge instructions, follow up and referral plans. medication usage, Demonstrated understanding of instructions, follow-up care, medications, Prescriptions given X 1. 22:15 Patient left the ED. vc1 Signatures: Dispatcher [employer] MARGARITA HermesErika Kyli, RN RN kd3 Jolene Cueva RN RN vc1 Kirill Gerardo MD MD bs3
--- NOTE | 2022-12-16 21:47 | EDPHYS ---
Physician Documentation [facility] Name: Philippe Farooq Age: 57 yrs Sex: Male : 1965 Arrival Date: 12/16/2022 Time: 19:09 Bed 8 Private MD: ED Physician Kirill Gerardo HPI: 12/16 20:33 This 57 yrs old Male presents to ER via Ambulatory with complaints of Wound bs3 Infection. 20:33 57-year-old male presents with left leg injury he states that on Saturday he scraped his bs3 weber with a bolt he had a significant amount of bleeding however he compressed it and now notes some swelling around the area he denies fevers chills he does note some swelling tracking down his leg nothing else is bothering him his last tetanus was 1 year ago. Historical: - Allergies: 20:13 Morphine; kd3 20:13 PENICILLINS; kd3 - Home Meds: 20:13 Metoprolol Tartrate Oral [Active]; Hydroxyzine Oral [Active]; Famotidine Oral [Active]; kd3 - PMHx: 20:13 Hypertensive disorder; kd3 - Immunization history:: Adult Immunizations up to date, Last tetanus immunization: < 5 years ago. - Social history:: Smoking status: Patient/guardian denies using tobacco, but has a distant history of tobacco abuse. ROS: 20:40 All other systems are negative. bs3 Exam: 20:40 Constitutional: This is a well developed, well nourished patient who is awake, alert, bs3 and in no acute distress. Head/Face: Normocephalic, atraumatic. Eyes: Pupils equal round and reactive to light, extra-ocular motions intact. Lids and lashes normal. ENT: mmm, no posterior phyarngeal erythema Abdomen/GI: Soft, non-tender, no rebound or guarding MS/ Extremity: Pulses equal, no cyanosis. Neurovascular intact. Full, normal range of motion. On his left anterior weber he has a puncture wound with mild edema and slight erythema around it he also has some swelling in his ankle area Neuro: Awake and alert, GCS 15, oriented to person, place, time, and situation. Cranial nerves II-XII grossly intact. Motor strength 5/5 in all extremities. Sensory grossly intact. Psych: Awake, alert, with orientation to person, place and time. Behavior, mood, and affect are within normal limits. Vital Signs: 20:11 BP 146 / 86; Pulse 72; Resp 19; Temp 98.2(O); Pulse Ox 98% on R/A; Weight 111.13 kg; kd3 Height 5 ft. 11 in. ; 22:00 BP 144 / 78; Pulse 70; Resp 18; Pulse Ox 97% on R/A; vc1 20:11 Body Mass Index 34.17 (111.13 kg, 180.34 cm) kd3 MDM: 20:14 Patient medically screened. bs3 20:40 Data reviewed: vital signs, nurses notes. ED course: Will evaluate for obvious gas his bs3 edema is likely secondary to fluid shifting and likely related to his blood moving after the injury will cover with antibiotics. 21:44 Independent interpretation of the following test(s) in the Emergency Department X-Ray: bs3 My interpretation is no fracture/gas. 12/16 20:26 Order name: Tib Fib Left XRAY; Complete Time: 21:50 bs3 Administered Medications: 22:11 Drug: Clindamycin PO 300 mg Route: PO; vc1 22:15 Follow up: Response: Medication administered at discharge. vc1 Disposition Summary: 12/16/22 21:47 Discharge Ordered Location: Home bs3 Problem: new bs3 Symptoms: are unchanged bs3 Condition: Stable bs3 Diagnosis - Abrasion, left lower leg, initial encounter bs3 Followup: bs3 - With: Private Physician - When: 5 - 6 days - Reason: Re-evaluation by your physician Discharge Instructions: - Discharge Summary Sheet bs3 - Cellulitis, Adult, [id number] bs3 Forms: - Medication Reconciliation Form bs3 - Thank You Letter bs3 - Antibiotic Education bs3 Prescriptions: - Clindamycin HCl 150 mg Oral Capsule - take 3 capsule by ORAL route every 6 hours for 7 days; 84 capsule; Refills: 0, bs3 Product Selection Permitted Signatures: Dispatcher [employer] Twyla Hoyt RN RN kd3 Jolene Cueva RN RN vc1 Kirill Gerardo MD MD bs3
[2022-12-16 22:49] VITALS: TEMP 98.2
[2022-12-16 22:50] VITALS: BP 144/78; O2SAT 97
== END 2022-12-16 22:15 | disposition home or self-care (01) ==
LOC: ER 19:09
DX: S80.812A Abrasion, left lower leg, initial encounter (principal); I10 Essential (primary) hypertension; Z88.0 Allergy status to penicillin; Z88.5 Allergy status to narcotic agent

== ENCOUNTER 2024-03-26 21:05 | Observation (INO) | payer OTHER, SELFPAY ==
[2024-03-26] MEDS ORDERED: ONDANSETRON 4 MG/2 ML VIAL ONE (21:57)
[2024-03-26] MEDS ORDERED: FENTANYL CITR 100 MCG/2 ML ONE (21:58)
[2024-03-26] MEDS ORDERED: NA CHLORIDE 0.9% 1,000 ML ONE (21:58)
[2024-03-26] MEDS ORDERED: FAMOTIDINE 20 MG/2 ML VIAL IV ONE (21:58)
--- NOTE | 2024-03-26 22:14 | RAD REPORT ---
EXAM DESCRIPTION: Layne Single View03/26/2024 9:47 pm CLINICAL HISTORY: Chest pain COMPARISON: 2021 FINDINGS: The lungs appear clear of acute infiltrate. The heart is normal size IMPRESSION: No acute abnormalities displayed
[2024-03-26 22:23] LABS: Absolute Basophils 0.1 K/uL (0-0.5); Absolute Eosinophils 0.5 K/uL (0-0.5); Absolute Lymphocytes (CBC) 2.6 K/uL (0.7-4.9); Absolute Monocytes 1.1 K/uL (0.1-1.3); Absolute Neutrophil 7.2 K/uL (1.8-8.0); Basophils % 0.9 % (0-1.3); Eosinophils % 4.6 % (0-4.4); Hematocrit 47.4 % (39.6-49.0); Hemoglobin 16.2 g/dL (13.6-17.9); MCHC 34.1 g/dL (32.0-36.0); MCV 93.8 fL (80-100); MPV 7.6 fL (7.6-11.3); Monocytes % 9.2 % (3.3-12.3); Neutrophils % 62.3 % (41.7-73.7); Nucleated Red Blood Cells % 0.1 % (0-0); Platelets 315 thou/uL (152-406); RBC Red Blood Cell Count 5.05 M/uL (4.33-5.43); Red Cell Distribution Width 12.9 % (12.1-15.2)
[2024-03-26 22:33] LABS: Anion Gap 11.3 mEq/L (5.0-15.0); Potassium 3.3 mEq/L (3.5-5.1); Troponin High Sensitivity 9.1 pg/mL (<58.9)
[2024-03-26] MEDS ORDERED: HYDROMORPHONE HCL 1 MG/ML INJ ONE (23:40)
[2024-03-27] MEDS ORDERED: NITROGLYCERIN 1 GM PKT TD ONE (00:49)
--- NOTE | 2024-03-27 01:19 | ER ---
Nurse's Notes Formerly [facility] Name: Philippe Farooq Age: 58 yrs Sex: Male : 1965 Arrival Date: 03/26/2024 Time: 21:05 Bed 13 Private MD: Diagnosis: Angina pectoris, unspecified;Nausea Presentation: 03/26 21:11 Chief complaint: Patient states: intermittent nausea x 1 week. Pt reports this evening ss he began experiencing chest tightness and rapid heart rate while mowing. Coronavirus screen: Client denies travel out of the [place] in the last 14 days. Ebola Screen: Patient denies exposure to infectious person. Patient denies travel to an Ebola-affected area in the 21 days before illness onset. Initial Sepsis Screen: Does the patient meet any 2 criteria? No. Patient's initial sepsis screen is negative. Does the patient have a suspected source of infection? No. Patient's initial sepsis screen is negative. Risk Assessment: Do you want to hurt yourself or someone else? Patient reports no desire to harm self or others. Onset of symptoms was March 26, 2024. 21:11 Method Of Arrival: Ambulatory ss 21:11 Acuity: LAURA 3 ss Historical: - Allergies: 21:13 Morphine; ss 21:13 PENICILLINS; ss - Home Meds: 21:13 metoprolol tartrate 25 mg oral tablet 1 tab 2 times per day [Active]; ss - PMHx: 21:13 Hypertensive disorder; ss - PSHx: 21:13 disc fusion; ss - Immunization history:: Client reports receiving the 2nd dose of the Covid vaccine. - Infectious Disease History:: Denies. - Social history:: Smoking status: Patient/guardian denies using tobacco. Screenin:25 [facility] ED Fall Risk Assessment (Adult) History of falling in the last 3 months, jj7 including since admission No falls in past 3 months (0 pts) Confusion or Disorientation No (0 pts) Intoxicated or Sedated No (0 pts) Impaired Gait No (0 pts) Mobility Assist Device Used No (0 pt) Altered Elimination No (0 pt) Score/Fall Risk Level 0 - 2 = Low Risk Oriented to surroundings, Maintained a safe environment, Educated pt \T\ family on fall prevention, incl call for assistance when getting out of bed, Assessed \T\ reinforced patient's understanding of fall precautions. Abuse screen: Denies threats or abuse. Nutritional screening: No deficits noted. Tuberculosis screening: No symptoms or risk factors identified. Assessment: 21:25 General: Appears in no apparent distress. comfortable, Behavior is calm, cooperative, jj7 appropriate for age. Pain: Complains of pain in chest Pain radiates to back and left arm. Pain: Pain began gradually. Cardiovascular: Reports chest pain, nausea, Capillary refill < 3 seconds Patient's skin is warm and dry. Vital Signs: 21:11 BP 145 / 98; Pulse 101; Resp 16; Temp 98.3(TE); Pulse Ox 98% ; Weight 113.4 kg; Height ss 5 ft. 11 in. ; Pain 7/10; 22:00 BP 123 / 83; Pulse 96; Resp 17; Pulse Ox 95% ; jj7 23:16 BP 147 / 87; Pulse 81; Resp 20; Pulse Ox 98% ; jj7 03/27 00:38 BP 158 / 96; Pulse 78; Resp 16; Pulse Ox 100% ; jj7 01:30 BP 128 / 74; Pulse 69; Resp 17; Pulse Ox 95% ; jj7 02:05 BP 120 / 74; Pulse 72; Resp 18; Temp 97.3; Pulse Ox 99% ; jj7 02:41 BP 109 / 73; Pulse 68; Resp 16 S; Temp 98.1(TE); Pulse Ox 95% on R/A; sa1 03/26 21:11 Body Mass Index 34.87 (113.40 kg, 180.34 cm) 03/26 21:11 Pain Scale: Adult ED Course: 03/26 21:10 Patient arrived in ED. ss 21:13 Triage completed. ss 21:13 Arm band placed on right wrist. ss 21:18 Santos France PA is PHCP. cp 21:18 Antelmo Gomes MD is Attending Physician. cp 21:25 Patient has correct armband on for positive identification. Placed in gown. Bed in low jj7 position. Call light in reach. Side rails up X 1. Provided Education on: USE OF CALL VICKERS. Client placed on continuous cardiac and pulse oximetry monitoring. NIBP monitoring applied. emergency department coordinator on. Pulse ox on. 21:25 Patient maintains SpO2 saturation greater than 95% on room air. jj7 21:29 EKG done, by ED staff. vk 21:45 Inserted saline lock: 20 gauge in right forearm, using aseptic technique. Blood sa1 collected. Flushed with 10 mL NS Missed attempt(s): 20 gauge in right forearm. Bleeding controlled, band aid applied, catheter tip intact. 21:49 XRAY Chest (1 view) In Process Unspecified. EDMS 21:49 Zamzam Ronquillo, RN is Primary Nurse. jj7 21:49 Basic Metabolic Panel Sent. jj7 21:49 CBC with Diff Sent. jj7 21:49 Troponin HS Sent. jj7 22:09 D-Dimer Sent. jj7 22:09 Lipase Sent. jj7 22:35 US Abdomen Limited: ruq In Process Unspecified. EDMS 23:19 CT Aorta for Dissection In Process Unspecified. EDMS 03/27 01:10 Troponin High Sensitivity Sent. jj7 01:18 Kostas Tamez MD is Hospitalizing Provider. cp 02:15 No provider procedures requiring assistance completed. Patient admitted, IV remains in jj7 place. Administered Medications: 03/26 22:08 Drug: NS 0.9% IV 1000 ml IV at 999 ml/hr Per protocol Route: IV; Rate: 999 ml/hr; Site: [facility] right forearm; 23:47 Follow up: IV Status: Completed infusion jj7 22:08 Drug: Ondansetron IVP 4 mg IVP once; over 2 minutes Route: IVP; Site: right forearm; jj7 23:47 Follow up: Response: No adverse reaction jj7 22:08 Drug: Famotidine IVP 20 mg IVP once; dilute with 10 mL 0.9% NaCl; give over 2 minutes jj7 Route: IVP; Site: right forearm; 23:47 Follow up: Response: No adverse reaction jj7 22:08 Drug: fentaNYL (PF) IVP 50 mcg IVP once Route: IVP; Site: right forearm; jj7 23:30 Follow up: Response: Pain is decreased jj7 23:44 Drug: HYDROmorphone IVP 1 mg IVP once Route: IVP; Site: right forearm; jj7 03/27 00:00 Follow up: Response: Pain is decreased jj7 00:55 Drug: Nitroglycerin Transdermal Ointment 2 % 0.5 inches Transdermal once Route: jj7 Transdermal; Site: anterior chest wall; 01:54 Follow up: Response: No change in condition jj7 01:53 Drug: fentaNYL (PF) IVP 50 mcg IVP once Route: IVP; Site: right forearm; jj7 02:51 Follow up: Response: Pain is decreased jj7 01:54 Drug: Ondansetron IVP 4 mg IVP once; over 2 minutes Route: IVP; Site: right forearm; jj7 02:51 Follow up: Response: No adverse reaction jj7 Medication: 03/26 21:25 VIS not applicable for this client. jj7 Outcome: 03/27 01:19 Decision to Hospitalize by Provider. cp 02:15 Admitted to Med/surg accompanied by tech, via wheelchair, room 205, Report called to charo SBAR FAXED TO 2ND FLOOR. RECEIVED BY ADRIANE SERRANO 02:15 Condition: good 02:55 Patient left the ED. jj7 Signatures: Dispatcher [employer] EDMS Rebekah Fuentes, RN RN Santos Hernandez PA PA Zamzam Barksdale RN RN jYanna Gibbs Sultan sa1 Corrections: (The following items were deleted from the chart) 03/26 21:15 21:13 Allergies: Morphine; ss 21:15 21:13 Allergies: PENICILLINS; ss ss 21:15 21:13 Home Meds: metoprolol tartrate 25 mg oral tablet 1 tab 2 times per day; ss ss 21:15 21:13 PMHx: Hypertensive disorder; ss ss 21:15 21:13 PSHx: None; ss ss 21:15 21:13 PSHx: None; ss ss 22:12 22:11 Inserted saline lock: 20 gauge in right forearm, using aseptic technique. Blood sa1 collected. Flushed with 10 mL NS Missed attempt(s): 20 gauge in right forearm. Bleeding controlled, band aid applied, catheter tip intact. sa1 03/27 03:03 03:02 Patient left the ED. jj7 jj7
--- NOTE | 2024-03-27 01:19 | EDPHYS ---
Physician Documentation [facility] Name: Philippe Farooq Age: 58 yrs Sex: Male : 1965 Arrival Date: 03/26/2024 Time: 21:05 Bed 13 Private MD: ED Physician Antelmo Gomes HPI: 03/26 21:45 This 58 yrs old Male presents to ER via Ambulatory with complaints of Chest Tightness, cp Nausea. 21:45 The patient or guardian reports chest pain that is located primarily in the anterior cp chest wall, left. Onset: today, while mowing yard. 21:45 The pain radiates to the left shoulder, left neck. Associated signs and symptoms: cp Pertinent positives: abdominal pain, nausea, Pertinent negatives: diaphoresis, lower extremity pain, lower extremity swelling, palpitations, vomiting. The chest pain is described as tightness. Duration: The patient or guardian reports a single episode, that is still ongoing. Severity of pain: in the emergency department the pain is unchanged. Historical: - Allergies: 21:13 Morphine; ss 21:13 PENICILLINS; ss - Home Meds: 21:13 metoprolol tartrate 25 mg oral tablet 1 tab 2 times per day [Active]; ss - PMHx: 21:13 Hypertensive disorder; ss - PSHx: 21:13 disc fusion; ss - Immunization history:: Client reports receiving the 2nd dose of the Covid vaccine. - Infectious Disease History:: Denies. - Social history:: Smoking status: Patient/guardian denies using tobacco. ROS: 21:50 Constitutional: Negative for body aches, chills, fever, poor PO intake, cp 21:50 Cardiovascular: Positive for chest pain, cp 21:50 Back: Positive for pain at rest, pain with movement, cp 21:50 Eyes: Negative for injury, pain, redness, and discharge, cp 21:50 ENT: Negative for drainage from ear(s), ear pain, sore throat, difficulty swallowing, difficulty handling secretions, 21:50 Respiratory: Negative for cough, shortness of breath, wheezing, 21:50 Abdomen/GI: Positive for nausea, Negative for abdominal pain, vomiting, diarrhea, constipation, 21:50 Neuro: Negative for altered mental status, dizziness, headache, numbness, syncope, weakness, 21:50 All other systems are negative, cp Exam: 21:33 ECG was reviewed by the Attending Physician. cp 21:55 Constitutional: The patient appears in no acute distress, alert, awake, cp non-diaphoretic, non-toxic, well developed, well nourished, uncomfortable, 21:55 Head/Face: Normocephalic, atraumatic. cp 21:55 Eyes: Periorbital structures: appear normal, Pupils: equal, round, and reactive to light and accomodation, Extraocular movements: intact throughout, Conjunctiva: normal, no exudate, no injection, Sclera: no appreciated abnormality, Lids and lashes: appear normal, bilaterally, 21:55 ENT: External ear(s): are unremarkable, Nose: is normal, Mouth: Lips: moist, Oral mucosa: pink and intact, moist, Posterior pharynx: Airway: no evidence of obstruction, patent, 21:55 Neck: ROM/movement: Meningeal signs: are not present, nuchal rigidity, is not appreciated, 21:55 Chest/axilla: Inspection: normal, Palpation: is normal, no crepitus, no tenderness, 21:55 Cardiovascular: Rate: tachycardic, Rhythm: regular, Edema: is not appreciated, JVD: is not appreciated, 21:55 Respiratory: the patient does not display signs of respiratory distress, Respirations: normal, no use of accessory muscles, no retractions, labored breathing, is not present, Breath sounds: are clear throughout, no decreased breath sounds, no stridor, no wheezing, 21:55 Abdomen/GI: Inspection: abdomen appears normal, Bowel sounds: active, all quadrants, Palpation: soft, in all quadrants, moderate abdominal tenderness, in the epigastric area, 21:55 Back: CVA tenderness, is absent, 21:55 Neuro: Orientation: to person, place \T\ time. Mentation: is normal, Motor: moves all fours, no focal deficits, Sensation: no obvious gross deficits, 03/27 01:02 ECG was reviewed by the Attending Physician. cp Vital Signs: 03/26 21:11 BP 145 / 98; Pulse 101; Resp 16; Temp 98.3(TE); Pulse Ox 98% ; Weight 113.4 kg; Height ss 5 ft. 11 in. ; Pain 7/10; 22:00 BP 123 / 83; Pulse 96; Resp 17; Pulse Ox 95% ; jj7 23:16 BP 147 / 87; Pulse 81; Resp 20; Pulse Ox 98% ; jj7 03/27 00:38 BP 158 / 96; Pulse 78; Resp 16; Pulse Ox 100% ; jj7 01:30 BP 128 / 74; Pulse 69; Resp 17; Pulse Ox 95% ; jj7 02:05 BP 120 / 74; Pulse 72; Resp 18; Temp 97.3; Pulse Ox 99% ; jj7 02:41 BP 109 / 73; Pulse 68; Resp 16 S; Temp 98.1(TE); Pulse Ox 95% on R/A; sa1 03/26 21:11 Body Mass Index 34.87 (113.40 kg, 180.34 cm) ss 03/26 21:11 Pain Scale: Adult ss MDM: 03/26 21:18 Patient medically screened. cp 03/27 01:20 Data reviewed: vital signs, nurses notes, lab test result(s), EKG, radiologic studies, cp CT scan, plain films, and as a result, I will admit patient. 01:20 Differential diagnosis: abnormal EKG, acute myocardial infarction, acute pericarditis, cp chest wall pain, pancreatitis, peptic ulcer disease, pneumonia, pneumothorax, pulmonary embolus, stable angina, unstable angina. I considered the following discharge prescriptions or medication management in the emergency department Medications were administered in the Emergency Department. See MAR. Independent interpretation of the following test(s) in the Emergency Department EKG: See my EKG interpretation above. Care significantly affected by the following chronic conditions: Hypertension. Counseling: I had a detailed discussion with the patient and/or guardian regarding the historical points, exam findings, and any diagnostic results supporting the discharge/admit diagnosis, lab results, radiology results. Response to treatment: the patient's symptoms have mildly improved after treatment. 03/26 21:26 Order name: Basic Metabolic Panel; Complete Time: 22:48 ss 03/26 21:26 Order name: CBC with Diff; Complete Time: 22:48 ss 03/26 21:26 Order name: Troponin HS; Complete Time: 22:48 ss 03/26 21:45 Order name: D-Dimer; Complete Time: 22:48 cp 03/26 21:58 Order name: Lipase; Complete Time: 22:48 EDMS 03/27 00:38 Order name: Troponin High Sensitivity cp 03/27 01:44 Order name: Creatine Phosphokinase EDUT 03/27 01:44 Order name: Thyroid Stimulating Hormone EDUT 03/27 01:44 Order name: Lipid Profile EDUT 03/27 01:44 Order name: Lipid Profile EDUT 03/27 01:44 Order name: Troponin High Sensitivity EDUT 03/27 01:44 Order name: Troponin High Sensitivity [facility] 03/27 01:44 Order name: Troponin High Sensitivity [facility] 03/26 21:26 Order name: XRAY Chest (1 view) 03/26 22:11 Order name: US Abdomen Limited: ruq cp 03/26 22:50 Order name: CT Aorta for Dissection 03/27 00:38 Order name: EKG; Complete Time: 00:39 cp 03/26 21:26 Order name: Cardiac monitoring; Complete Time: 21:29 ss 03/26 21:26 Order name: EKG - Nurse/Tech; Complete Time: 21:29 ss 03/26 21:26 Order name: IV Saline Lock; Complete Time: 21:49 ss 03/26 21:26 Order name: Labs collected and sent; Complete Time: 21:49 ss 03/26 21:26 Order name: O2 Per Protocol; Complete Time: 21:29 ss 03/26 21:26 Order name: O2 Sat Monitoring; Complete Time: 21:29 ss 03/26 22:11 Order name: NPO; Complete Time: 22:44 cp 03/27 00:38 Order name: EKG - Nurse/Tech; Complete Time: 01:10 cp EC/29 21:33 Rate is 93 beats/min. Rhythm is regular. OR interval is prolonged at 226 msec. QRS cp interval is prolonged at 104 msec. QT interval is normal. T waves are Inverted in lead aVR. Interpreted by me. Reviewed by me. 03/27 01:02 Rate is 68 beats/min. Rhythm is regular. OR interval is normal. QRS interval is normal. cp QT interval is normal. T waves are Inverted in lead aVR. Interpreted by me. Reviewed by me. Administered Medications: 03/26 22:08 Drug: NS 0.9% IV 1000 ml IV at 999 ml/hr Per protocol Route: IV; Rate: 999 ml/hr; Site: [facility] right forearm; 23:47 Follow up: IV Status: Completed infusion jj7 22:08 Drug: Ondansetron IVP 4 mg IVP once; over 2 minutes Route: IVP; Site: right forearm; jj7 23:47 Follow up: Response: No adverse reaction jj7 22:08 Drug: Famotidine IVP 20 mg IVP once; dilute with 10 mL 0.9% NaCl; give over 2 minutes jj7 Route: IVP; Site: right forearm; 23:47 Follow up: Response: No adverse reaction jj7 22:08 Drug: fentaNYL (PF) IVP 50 mcg IVP once Route: IVP; Site: right forearm; jj7 23:30 Follow up: Response: Pain is decreased jj7 23:44 Drug: HYDROmorphone IVP 1 mg IVP once Route: IVP; Site: right forearm; jj7 03/27 00:00 Follow up: Response: Pain is decreased jj7 00:55 Drug: Nitroglycerin Transdermal Ointment 2 % 0.5 inches Transdermal once Route: j7 Transdermal; Site: anterior chest wall; 01:54 Follow up: Response: No change in condition jj7 01:53 Drug: fentaNYL (PF) IVP 50 mcg IVP once Route: IVP; Site: right forearm; jj7 02:51 Follow up: Response: Pain is decreased jj7 01:54 Drug: Ondansetron IVP 4 mg IVP once; over 2 minutes Route: IVP; Site: right forearm; jj7 02:51 Follow up: Response: No adverse reaction jj7 Disposition: 04:03 Co-signature as Attending Physician, Antelmo Gomes MD I agree with the assessment sp4 and plan of care. I reviewed the patient's care provided by the Advanced Practice Provider and agree with the diagnosis and treatment plan. Disposition Summary: 03/27/24 01:19 Hospitalization Ordered Notes: Hospitalization Status: Observation cp Provider: Kostas Tamez cp Location: Telemetry/MedSurg (observation) cp Condition: Stable cp Problem: new cp Symptoms: have improved cp Bed/Room Type: Standard cp Room Assignment: 205(03/27/24 02:01) rv1 Diagnosis - Angina pectoris, unspecified cp - Nausea cp Forms: - Medication Reconciliation Form cp - SBAR form cp - Leadership Thank You Letter cp Signatures: Dispatcher [employer] EDMS Rebekah Fuentes RN RN ss Santos France PA PA Zamzam Barksdale RN RN jj7 Shira Spicer rv1 Antelmo Gomes MD MD sp4 Corrections: (The following items were deleted from the chart) 03/26 21:15 21:13 Allergies: Morphine; [facility] 21:15 21:13 Allergies: PENICILLINS; [facility] 21: 21:13 Home Meds: metoprolol tartrate 25 mg oral tablet 1 tab 2 times per day; [facility] 21:13 PMHx: Hypertensive disorder; [facility] : 21:13 PSHx: None; [facility] 21: 21:13 PSHx: None; [facility] 21: 21:27 BASIC METABOLIC PANEL+C.LAB.BRZ ordered. EDMS EDMS 21: 21:27 CBC+H.LAB.BRZ ordered. EDMS EDMS 21: 21:27 Troponin High Sensitivity+C.LAB.BRZ ordered. EDMS EDMS 21:27 21:27 Chest Single View+RAD.RAD.BRZ ordered. EDMS EDMS 21:58 21:46 LIPASE+C.LAB.BRZ ordered. EDMS EDMS 03/27 00:39 00:39 Troponin High Sensitivity+C.LAB.BRZ ordered. EDMS EDMS 02:01 01:19 cp rv1
--- NOTE | 2024-03-27 01:34 | P.HP ---
Certification for Inpatient Patient admitted to: Observation With expected LOS: <2 Midnights Patient will require the following post-hospital care: None Practitioner: I am a practitioner with admitting privileges, knowledge of patient current condition, hospital course, and medical plan of care. Services: Services provided to patient in accordance with Admission requirements found in Title 42 Section 412.3 of the Code of Federal Regulations Patient History Date of Service: 03/27/24 Reason for admission: Chest pain History of Present Illness: 58-year-old male with past medical history of hypertension who presented because of left-sided chest pain radiating to the left shoulder. Symptoms started while he was mowing his lawn yesterday. Pain also radiates to the epigastric area. Patient states he gets intermittent heartburn but states this pain symptoms is different from his usual symptoms of heartburn. Patient admits to associated intermittent nausea but denies any vomiting. He developed palpitations this afternoon. He presented to the hospital because of worsening symptoms. He denies any similar episodes in the past. He denies any dizziness or loss of consciousness. He denies any shortness of breath. Patient is still complaining of persistent neck and back pain. Which has been chronic. On arrival in the ED vital signs were stable except for mild tachycardia heart rate of 105, EKG shows normal sinus rhythm, initial borderline QRS prolongation but resolved on repeat, ST segment with normal rate T wave inversion in aVR which were unchanged on follow-up EKG. BMP was normal except for creatinine of 1.33 and potassium of 3.3. Troponin was negative. Lipase also normal. D-dimer mildly elevated at 0.09. CBC was unremarkable. Chest x-ray shows no acute infiltrate. CT of the chest dissection protocol pending. Patient is being admitted for atypical chest pain Allergies Penicillins Allergy (Verified 03/27/24 03:19) Hives Home Medications: Lansoprazole 15 mg PO DAILY 03/27/24 Metoprolol Tartrate 25 mg PO BID 03/27/24 - Past Medical/Surgical History -: Hypertension -: Back pain -: Cervical laminectomy - Family History Father -: Heart disease Mother -: Hypertension - Social History Smoking Status: Never smoker Smoking therapy provided: No Patient receptive to therapy: No Alcohol use: No CD- Drugs: No Caffeine use: No Place of Residence: Home Review of Systems Cardiovascular: Chest Pain Gastrointestinal: Nausea Musculoskeletal: Neck Pain, Back Pain Physical Examination - Physical Exam General: Alert, In no apparent distress, Oriented x3, Obese HEENT: Atraumatic, Normocephalic, PERRLA, Mucous membr. moist/pink Neck: Supple, 2+ carotid pulse no bruit, JVD not distended Cardiovascular: Normal pulses, Regular rate/rhythm, Normal S1 S2 Gastrointestinal: Normal bowel sounds, Soft and benign, Non-distended, No ascites, No tenderness Musculoskeletal: No clubbing, No swelling Integumentary: No breakdown, No significant lesion, No tenderness/swelling Neurological: Normal speech, Normal tone, Cranial nerves 3-12 intact, Normal reflexes 2+ - Studies Laboratory Data (last 24 hrs) 03/26/24 03/26/24 03/26/24 21:45 21:41 21:41 WBC 11.50 H Hgb 16.2 Hct 47.4 Plt Count 315 Sodium 140 Potassium 3.3 L BUN 15 Creatinine 1.33 H Glucose 96 Lipase Cancelled 37 Assessment and Plan - Problems (Diagnosis) (1) Chest pain Current Visit: Yes Status: Acute - Plan Impression Atypical chest pain Hypertension Plan Will admit patient to observation Place in telemetry Serial set of cardiac enzymes, initial set negative Pain control Sublingual nitroglycerin as needed recurrent chest pain Follow CT of the chestpending Add IV Protonix for nausea as well as as needed Zofran Subcutaneous Lovenox for DVT prophylaxis Resume home BP medication Full code Dispo possible discharge in a.m. Discharge Plan: Home - Advance Directives Does patient have a Living Will: No Does patient have a Durable POA for Healthcare: No Time Spent Managing Pts Care (In Minutes): 65
[2024-03-27] MEDS ORDERED: ONDANSETRON 4 MG/2 ML VIAL IV PRN (01:35)
[2024-03-27] MEDS ORDERED: MORPHINE 2 MG/ML SYR IV PRN (01:35)
[2024-03-27] MEDS ORDERED: ALBUTEROL 2.5 MG/3 ML NEB SOL NEB PRN (01:35)
[2024-03-27] MEDS ORDERED: MELATONIN 5 MG TABLET PO PRN (01:38)
[2024-03-27] MEDS ORDERED: HYDRALAZINE HCL 20 MG/ML VIAL IV PRN (01:38)
[2024-03-27] MEDS: NITROGLYCERIN 0.4 MG/TAB SL ONE (01:39)
[2024-03-27] MEDS ORDERED: ONDANSETRON 4 MG/2 ML VIAL ONE (01:46)
[2024-03-27] MEDS ORDERED: FENTANYL CITR 100 MCG/2 ML ONE (01:50)
[2024-03-27 03:25] VITALS: BMI 34.7
[2024-03-27] MEDS: ACETAMINOPHEN 500 MG TAB PO PRN (03:33)
[2024-03-27] MEDS: ASPIRIN EC 81 MG TAB PO SCH (03:33)
[2024-03-27] MEDS: HYDROCODONE/APAP 5/325 MG TAB PO ONE (04:22)
[2024-03-27 05:23] LABS: Thyroid Stimulating Hormone 2.52 uIU/mL (0.358-3.740); Troponin High Sensitivity 32.2 pg/mL (<58.9)
[2024-03-27] MEDS: HYDROMORPHONE HCL 0.5 MG/0.5 ML INJ IV PRN (05:24)
[2024-03-27] MEDS: ENOXAPARIN 40 MG/0.4 ML SQ SCH (08:06)
[2024-03-27] MEDS: METOPROLOL TAR 25 MG TAB PO SCH (08:25)
[2024-03-27] MEDS: PANTOPRAZOLE 40MG TABLET PO SCH (08:34)
[2024-03-27] MEDS: FAMOTIDINE 20 MG TAB PO SCH (08:34)
--- NOTE | 2024-03-27 10:14 | RAD REPORT ---
EXAM DESCRIPTION: US - Abdomen Exam Limited - 03/26/2024 10:33 pm CLINICAL HISTORY: 58 years Male ABD PAIN COMPARISON: CT scan dated 03/13/2023 TECHNIQUE: Real-time and bettencourt scale sonographic imaging of the right upper quadrant was performed. FINDINGS: The gallbladder is normal without gallstones, wall thickening, or pericholecystic fluid. T he common bile duct is within normal limits, measuring 3 mm in diameter. IMPRESSION: Normal gallbladder. Electronically signed by: Katie Ray MD 03/26/2024 10:44 PM CDT RP Due to temporary technical issues with the PACS/Fluency reporting system, reports are being signed by the in house radiologist without review as a courtesy to ensure prompt reporting. The interpreting r adiologist is fully responsible for the content of the report.
--- NOTE | 2024-03-27 10:42 | RAD REPORT ---
EXAM DESCRIPTION: CT - Angio Aorta For Dissection - 03/27/2024 6:06 am CLINICAL HISTORY: Chest pain, back pain. COMPARISON: Only report for XR Chest 03/27/[address] Abdomen pelvis 03/13/2023. TECHNIQUE: CTA of the chest, abdomen, and pelvis was performed following intravenous administratio n of iodinated contrast. Oral contrast was not administered. Axial, coronal, and sagittal soft tissue window reconstructions were created and sent to PACS. This exam was performed according to our departmental dose-optimization program, which includes autom ated exposure control, adjustment of the mA and/or kV according to patient size and/or use of iterati ve reconstruction technique. 3D reconstructions were created on an independent workstation and sent to PACS for evaluation. FINDINGS: Vascular: No aortic aneurysm or acute dissection. No evidence of acute pulmonary thromboem bolism. Incidentally noted two-vessel aortic arch, normal variant. The celiac axis, SMA, and JEM and their major branches are patent. Patent renal arteries. Lungs and pleura: No pulmonary consolidation. No pleural effusion. No pneumothorax. Mediastinum and neck: No mediastinal lymphadenopathy by CT size criteria. Unremarkable appearance of the thyroid gland. Cardiac: No cardiomegaly or pericardial effusion. Moderate amount of coronary artery calcifications. Hepatobiliary: Diffuse hepatic steatosis. No concerning hepatic lesion identified. The portal veins a re patent. The gallbladder is unremarkable. No biliary ductal dilatation. Pancreas: Unremarkable. Spleen: Unremarkable. Gastrointestinal: No evidence of bowel obstruction or perienteric inflammation. The appendix is surgi herminio absent. Small stool burden. Mild left colonic diverticulosis. Adrenals: No abnormality identified in either adrenal gland. Renal: No concerning parenchymal abnormality in either kidney. No hydronephrosis or urolithiasis. Bladder/Reproductive: Unremarkable appearance of the urinary bladder by CT technique. Mild prostatome robyn. Lymphatics: No lymphadenopathy identified by CT size criteria. Musculoskeletal: No concerning osseous lesion identified. Posterior fusion hardware from L4 through S 1 with intervening disc spacers. The hardware appears intact. Grade 1 anterolisthesis at L4-5. No acu te osseous abnormality identified. Unremarkable appearance of the overlying soft tissues. Fluid / peritoneum: No significant free fluid. No free intraperitoneal air identified. IMPRESSION 1. No acute aortic dissection. No aortic aneurysm. No evidence of acute pulmonary throm boembolism. 2. No acute findings in the chest, abdomen, or pelvis. 3. Moderate amount of coronary artery calcifications. 4. Hepatic steatosis. 5. L4-S1 postsurgical changes with no acute findings. Electronically signed by: Melonie Proctor MD 03/27/2024 12:11 AM CDT RP Due to temporary technical issues with the PACS/Fluency reporting system, reports are being signed by the in house radiologist without review as a courtesy to ensure prompt reporting. The interpreting r adiologist is fully responsible for the content of the report.
[2024-03-27 13:28] VITALS: O2SAT 96
--- NOTE | 2024-03-27 14:06 | P.CNS ---
Date of Consult: 03/27/24 Chief Complaint: Chest pain History of Present Illness: Patient with PMH of HTN, GERD presented with pain that started at his lower abdomen, radiated to his back and chest and left arm, denies having any similar symptoms in the past, symptoms resolved now but still complain of back pain, no SOB, no palpitations, no syncope. Allergies Penicillins Allergy (Verified 03/27/24 03:19) Hives Home medications list reviewed: Yes Home Medications: Lansoprazole 15 mg PO DAILY 03/27/24 Metoprolol Tartrate 25 mg PO BID 03/27/24 - Past Medical/Surgical History Diabetic: No -: Hypertension -: Back pain -: Cervical laminectomy - Family History Father Medical History: Heart disease Mother Medical History: Hypertension - Social History Smoking Status: Former smoker Alcohol use: No CD- Drugs: No Caffeine use: No Place of Residence: Home Review of Systems 10-point ROS is otherwise unremarkable Physical Examination Temp Pulse Resp BP Pulse Ox 97.8 F 63 16 109/70 96 03/27/24 12:00 03/27/24 12:00 03/27/24 12:00 03/27/24 12:00 03/27/24 12:00 General: Alert, In no apparent distress HEENT: Atraumatic, PERRLA, Mucous membr. moist/pink, EOMI, Sclerae nonicteric Neck: Supple, 2+ carotid pulse no bruit, No LAD, Without JVD or thyroid abnormality Respiratory: Clear to auscultation bilaterally, Normal air movement Cardiovascular: Regular rate/rhythm, Normal S1 S2 Gastrointestinal: Normal bowel sounds, No tenderness Musculoskeletal: No tenderness Integumentary: No rashes Neurological: Normal gait, Normal speech, Normal tone, Normal affect Lymphatics: No axilla or inguinal lymphadenopathy Laboratory Data (last 24 hrs) 03/26/24 03/26/24 03/26/24 21:45 21:41 21:41 WBC 11.50 H Hgb 16.2 Hct 47.4 Plt Count 315 Sodium 140 Potassium 3.3 L BUN 15 Creatinine 1.33 H Glucose 96 Lipase Cancelled 37 - Problems (1) HTN (hypertension) Current Visit: Yes Status: Acute Plan: Continue Lopressor. (2) GERD (gastroesophageal reflux disease) Current Visit: Yes Status: Acute Plan: continue Pantoprazole, follow up with GI (3) Chest pain Current Visit: Yes Status: Acute Plan: atypical, EKG and cardiac enzymes are negative outpatient stress test continue ASA 81 mg daily
--- NOTE | 2024-03-27 14:37 | EKG ---
Test Date: 2024-03-26 Test Time: 21:25:09 Patient Service Representative: ANDIE MEASUREMENT RESULTS: Intervals: Rate: 93 CO: 226 QRSD: 104 QT: 360 QTc: 447 [place]: P: 63 CO: 226 QRS: 11 T: 37 INTERPRETIVE STATEMENTS: Sinus rhythm with 1st degree AV block Septal infarct, age undetermined Abnormal ECG Compared to ECG 01/31/2022 16:35:13 First degree AV block now present Myocardial infarct finding now present Electronically Signed On 03-27-24 14:36:55 CDT by Ajay Hilliard
--- NOTE | 2024-03-27 14:37 | EKG ---
Test Date: 2024-03-27 Test Time: 00:56:05 Collections Representative: MEASUREMENT RESULTS: Intervals: Rate: 68 ID: [id number] QRSD: 84 QT: 378 QTc: 401 [place]: P: 36 ID: [id number] QRS: 11 T: 17 INTERPRETIVE STATEMENTS: Normal sinus rhythm Cannot rule out Anterior infarct, age undetermined Abnormal ECG Compared to ECG 03/26/2024 21:25:09 First degree AV block no longer present Myocardial infarct finding still present Electronically Signed On 03-27-24 14:36:49 CDT by Ajay Hilliard
--- NOTE | 2024-03-27 14:56 | P.DS ---
Admission Date: 03/27/24 Discharge Date: 03/27/24 Disposition: ROUTINE DISCHARGE Discharge Condition: GOOD Reason for Admission: Chest pain Consultations: CardiologyDr. Hilliard Brief History of Present Illness: 58-year-old male with past medical history of hypertension who presented because of left-sided chest pain radiating to the left shoulder. Symptoms started while he was mowing his lawn yesterday. Pain also radiates to the epigastric area. Patient states he gets intermittent heartburn but states this pain symptoms is different from his usual symptoms of heartburn. Patient admits to associated intermittent nausea but denies any vomiting. He developed palpitations this afternoon. He presented to the hospital because of worsening symptoms. He denies any similar episodes in the past. He denies any dizziness or loss of consciousness. He denies any shortness of breath. Hospital Course: Problem list Nonspecific chest pain Hypertension Back pain Patient was admitted under observation for chest pain. He was monitored on telemetry and had had no significant arrhythmia, troponins were negative x 3, CT dissection protocol showed some mild hepatic steatosis but otherwise negative, abdominal ultrasound also showed no findings of acute findings of the gallbladder. Patient was evaluated by cardiology who recommends outpatient stress test for further evaluation. Please call cardiology office to schedule appointment for outpatient stress test next week. Continue your other home medications as previously prescribed You should also follow-up with your primary care doctor at the [facility] in the next 1 to 2 weeks Vital Signs/Physical Exam: Temp Pulse Resp BP Pulse Ox 97.8 F 63 16 109/70 96 03/27/24 12:00 03/27/24 12:00 03/27/24 12:00 03/27/24 12:00 03/27/24 12:00 General: Alert, In no apparent distress HEENT: Atraumatic, PERRLA, EOMI Neck: Supple Respiratory: Clear to auscultation bilaterally, Normal air movement Cardiovascular: Regular rate/rhythm, Normal S1 S2 Gastrointestinal: Normal bowel sounds, No tenderness Musculoskeletal: No tenderness Integumentary: No rashes Neurological: Normal speech, Normal affect Laboratory Data at Discharge: WBC 11.50 thou/uL (4.3-10.9) H 03/26/24 21:41 Hgb 16.2 g/dL (13.6-17.9) 03/26/24 21:41 Hct 47.4 % (39.6-49.0) 03/26/24 21:41 Plt Count 315 thou/uL (152-406) 03/26/24 21:41 Sodium 140 mEq/L (136-145) 03/26/24 21:41 Potassium 3.3 mEq/L (3.5-5.1) L 03/26/24 21:41 BUN 15 mg/dL (7-18) 03/26/24 21:41 Creatinine 1.33 mg/dL (0.70-1.30) H 03/26/24 21:41 Glucose 96 mg/dL (74-106) 03/26/24 21:41 Lipase Cancelled 03/26/24 21:45 Home Medications: Lansoprazole 15 mg PO DAILY 03/27/24 Metoprolol Tartrate 25 mg PO BID 03/27/24 Physician Discharge Instructions: Patient was admitted under observation for chest pain. He was monitored on telemetry and had had no significant arrhythmia, troponins were negative x 3, CT dissection protocol showed some mild hepatic steatosis but otherwise negative, abdominal ultrasound also showed no findings of acute findings of the gallbladder. Patient was evaluated by cardiology who recommends outpatient stress test for further evaluation. Please call cardiology office to schedule appointment for outpatient stress test next week. Continue your other home medications as previously prescribed You should also follow[facility] the [facility] 1 to 2 weeks Diet: AHA Activity: Ad rajeev Followup: Ajay Hilliard MD [ACTIVE - CAN ADMIT] - 2-3 Days [facility] [Primary Care Provider[facility] - 1 Week Time spent managing pt's care (in minutes): 34
[2024-03-27 16:22] VITALS: BP 121/61; TEMP 97.2
== END 2024-03-27 16:14 | disposition home or self-care (01) ==
LOC: ER 21:05 → ERHOLD 03-27 01:35 → 2ND 03-27 02:46
PROVIDERS: ADMIT Internal Medicine; ATTEND Hospitalist
DX: R07.89 Other chest pain (principal); K21.9 Gastro-esophageal reflux disease without esophagitis; I10 Essential (primary) hypertension; Z88.0 Allergy status to penicillin
CPT/HCPCS: 96361; 93005 ×2; 85025; 80048; 36415; 82550; 85379; 84443; 84484 ×3; 83690; 71275; 74175; 71045; 76705; 96375; 96374; 99285; Q9967; J3010 ×2; J1170 ×3; J2405 ×2; J7030; G0378 ×2